=== PATIENT | male | born 1930 | race Caucasian/White ===

== ENCOUNTER 2017-07-26 16:26 | Inpatient (IN) ==
[2017-07-26] MEDS ORDERED: 0.9 % Sodium Chloride 1,000 ML IVC ONE ×2 (16:35→19:22)
[2017-07-26 16:55] LABS: Basophils % 0.2 %; Eosinophils % 0.2 %; Hemoglobin 12.9 g/dL (12.9-16.9); Immature Granulocytes % 0.2 % (0-4); Mean Corpuscular HGB Conc 31.5 g/dL (31.6-35.5); Mean Corpuscular Hemoglobin 28.5 pg (28.0-33.3); Mean Corpuscular Volume 90.5 fL (83.0-100.0); Mean Platelet Volume 11.3 fL (9.4-12.4); Monocytes # 0.6 K/mcL (0.0-1.3); Monocytes % 7.2 %; Neutrophils # 6.9 K/mcL (1.6-8.9); Platelet Count 184 K/mcL (140-400); Red Blood Count 4.53 M/mcL (4.19-5.50); Red Cell Distribution Width 15.5 % (11.5-14.5); Segmented Neutrophils % 80.2 %
[2017-07-26 16:58] LABS: INR 1.3; Prothrombin Time 14.2 Seconds (9.4-12.1)
--- NOTE | 2017-07-26 17:03 | Emergency Department Note ---
Disposition Clinical Impression: HHNC (hyperglycemic hyperosmolar nonketotic coma) Community acquired pneumonia Qualifiers: Laterality: unspecified laterality Qualified Code(s): J18.9 - Pneumonia, unspecified organism Disposition: Admitted As Inpatient Condition: Fair Time of Disposition: 21:15 Altered Mental Status HPI - General Chief Complaint: ED Altered Mental Status Stated Complaint: altered mental status Time Seen by Provider: 07/26/17 16:35 Source: EMS Limitations: no limitations Nursing Notes Reviewed: Yes Vital Signs Reviewed: Yes - History of Present Illness HPI Narrative: Patient is a 86-year-old male presents secondary to declining mental status over the past 6 weeks per his daughter at bedside. Patient states no signs of unilateral focal weaknesses no facial droop. Patient has a NIH score of 0 on arrival. Patient has a history of CHF and has not been taking his meds. Daughter states that he has extra help in assisted living to make sure he takes his medications but even with them and her on the phone told her father to take his medications that he would not take him. She noticed dramatic change in his mental status today which she was not responding to any commands and called EMS. - Related Data Home Medications Medication Instructions Recorded Confirmed Aspirin [Adult Low Dose Aspirin EC] 81 mg PO QAM 09/25/15 09/25/15 Atorvastatin Calcium [Lipitor] 20 mg PO QPM 09/25/15 09/25/15 Carbidopa/Levodopa 25/250 [Sinemet 1 each PO TID 09/25/15 09/25/15 25/250] Carbidopa/Levodopa [Carbidopa-Levo 3 each PO HS 09/25/15 09/25/15 ER 25-100 Tab] Cholecalciferol (Vitamin D3) 1,000 unit PO QAM 09/25/15 09/25/15 [Vitamin D3] Entacapone [Comtan] 200 mg PO QID 09/25/15 09/25/15 Ferrous Sulfate 325 mg PO QAM 09/25/15 09/25/15 Folic Acid 0.8 mg PO QAM 09/25/15 09/25/15 Gabapentin [Neurontin] 600 mg PO BID 09/25/15 09/25/15 Gabapentin [Neurontin] 900 mg PO HS 09/25/15 09/25/15 Multivitamin/Iron/Folic Acid 1 each PO BID 02/01/16 02/01/16 [Centrum Complete Multivit Tab] Pantoprazole Sodium [Protonix] 40 mg PO QAM 09/25/15 09/25/15 levETIRAcetam [Keppra] 500 mg PO DAILY 09/25/15 09/25/15 levETIRAcetam [Keppra] 750 mg PO QAM 09/25/15 09/25/15 Previous Rx's Medication Instructions Recorded Sulfamethoxazole/Trimeth DS 1 each PO BID #14 tablet 07/22/17 [Bactrim DS] Allergies Allergy/AdvReac Type Severity Reaction Status Date / Time codeine Allergy Hives Verified 09/25/15 13:40 Penicillins [PCN] Allergy Hives Verified 09/25/15 16:37 All systems ED: reviewed and negative except as stated. Review of Systems: As Per HPI Constitutional: Denies: fever Eyes: Denies: vision change ENT ED: Reports: congestion Cardiovascular: Denies: chest pain, palpitations Respiratory: Reports: cough, dyspnea Gastrointestinal: Denies: abdominal pain, nausea, vomiting, diarrhea Genitourinary: Denies: urgency, dysuria, frequency Musculoskeletal: Denies: back pain, neck pain Integumentary: Reports: rash Neurological: Reports: weakness. Denies: headache Psychiatric: Denies: anxiety Endocrine: Denies: fatigue Allergic/Immunologic: Denies: facial swelling Past Medical History - Past Medical History Attestation: Yes The following information was validated with the patient. 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 Psychiatric history: Reports: depression - Social History Smoking Status: Never smoker Smokeless Tobacco Status: No Alcohol use: Reports: none Drug use: Reports: none Physical Exam Vital Signs Temperature 98.1 F 07/26/17 16:32 Pulse Rate 84 07/26/17 16:32 Respiratory Rate 18 07/26/17 16:32 Blood Pressure 133/70 07/26/17 16:32 O2 Sat by Pulse Oximetry 95 07/26/17 16:32 Temperature 98.1 F 07/26/17 16:32 Pulse Rate 93 07/26/17 17:01 Respiratory Rate 16 07/26/17 17:01 Blood Pressure 133/70 07/26/17 17:01 O2 Sat by Pulse Oximetry 93 07/26/17 17:01 Oxygen Delivery Oxygen Delivery Nasal Cannula 86-year-old male who is currently alert and oriented 3 and in no acute distress. Patient has a NIH score of 0. Patient responds and follows directions well. She is nontoxic appearing patient has no abnormal vital signs - General Limitations: no limitations General appearance: alert, in no apparent distress - Head Head exam: atraumatic, normocephalic, normal inspection - Eye Eye exam: Present: normal appearance, PERRL, EOMI - ENT ENT exam: normal exam, normal oropharynx, mucous membranes dry - Neck Neck exam: Present: normal inspection, full ROM, trachea midline. Absent: tenderness - Chest Chest inspection: Present: normal inspection, symmetric chest wall rise - Respiratory Respiratory exam: Present: normal lung sounds bilaterally, other (Course Rales bilaterally patient sounds congested and has wet sounding gurgly breath sounds) . Absent: respiratory distress, wheezes - Cardiovascular Cardiovascular exam: Present: regular rate, normal rhythm, normal heart sounds - Abdominal Exam Abdominal exam: Present: soft, Non-Tender, other (Rounded abdomen). Absent: tenderness, distention, guarding, rebound, rigidity Course Vital Signs Temperature 98.1 F 07/26/17 16:32 Pulse Rate 84 07/26/17 16:32 Respiratory Rate 18 07/26/17 16:32 Blood Pressure 133/70 07/26/17 16:32 O2 Sat by Pulse Oximetry 95 07/26/17 16:32 Temperature 98 F 07/26/17 20:02 Pulse Rate 85 07/26/17 20:45 Respiratory Rate 18 07/26/17 20:45 Blood Pressure 123/74 07/26/17 20:45 O2 Sat by Pulse Oximetry 93 07/26/17 20:45 Oxygen Delivery Oxygen Delivery Nasal Cannula Altered Mental Status - [facility] Narrative Medical decision making narrative: Ultimately status worsening over the past 6 weeks with acute severe worsening today where patient was not responding to commands and had severe generalized weakness discomfort concerning for possible acute infection resulting in metabolic encephalopathy versus CVA. Patient had a negative NIH and is alert and oriented 3 with a GCS 15 and no focal neurologic deficits currently doubt CVA. Patient's blood glucose came back 862. with a neg beta hydroxybutyric acid, he has been started on insulin given 9 units to treat possibly HHS. Awaiting ABG. Patient has anion gap 17. Repeat glucose 530 POC. After first dose insulin patient placed on insulin drip. Chest x-ray shows atelectasis bibasilar pulmonary effusions could be hiding possible pneumonia. Patient was started on 1 dose levofloxacin to cover for possible pneumonia. Dr. Gomez the hospitalist accepted patient for admission - Lab Data Lab results reviewed: Yes I reviewed the patient's lab results. Lab results narrative: Short CBC 07/26/17 Range/Units 16:44 WBC 8.6 (4.3-11.1) K/mcL Hgb 12.9 (12.9-16.9) g/dL Hct 41.0 (37.5-50.1) % Plt Count 184 (140-400) K/mcL Neutrophils # 6.9 (1.6-8.9) K/mcL BMP 07/26/17 Range/Units 16:44 Sodium 140 (136-145) mEq/L Potassium 5.6 H (3.5-4.5) mEq/L Chloride 106 (98-109) mEq/L Carbon Dioxide 17 L (19-29) mEq/L BUN 37 H (8-26) mg/dL Creatinine 2.47 H (0.72-1.25) mg/dL Glucose 862 H* (70-99) mg/dL Calcium 9.2 (8.6-10.8) mg/dL Cardiac Enzymes 07/26/17 Range/Units 16:44 Troponin I 0.02 (0-0.03) ng/mL Liver Function 07/26/17 Range/Units 16:44 Total Bilirubin 0.6 (0.2-1.2) mg/dL Direct Bilirubin 0.3 (0.0-0.5) mg/dL AST 21 (5-34) Units/L ALT 14 (0-55) Units/L Alkaline Phosphatase 127 H (38-126) Units/L Albumin 2.9 L (3.5-5.0) g/dL Urine 07/26/17 Range/Units 17:25 Urine Color Yellow (Yellow) Urine Clarity Cloudy A (Clear) Urine pH 6.0 (5.0-8.0) pH Units Ur Specific Robins > 1.030 H (1.010-1.025) Urine Protein Negative (Neg-Trace) mg/dL Urine Glucose (UA) >=1000 H (Normal) mg/dL Result diagrams: 07/26/17 16:44 07/26/17 16:44 Lab Results 07/26/17 07/26/17 07/26/17 Range/Units 16:38 16:39 16:44 WBC (4.3-11.1) K/mcL RBC (4.19-5.50) M/mcL Hgb (12.9-16.9) g/dL Hct (37.5-50.1) % MCV (83.0-100.0) fL MCH (28.0-33.3) pg MCHC (31.6-35.5) g/dL RDW (11.5-14.5) % Plt Count (140-400) K/mcL MPV (9.4-12.4) fL Immature Gran % (0-4) % Seg Neutrophils % % Lymphocytes % % Monocytes % % Eosinophils % % Basophils % % Neutrophils # (1.6-8.9) K/mcL Lymphocytes # (0.6-4.6) K/mcL Monocytes # (0.0-1.3) K/mcL Eosinophils # (0.0-0.6) K/mcL Basophils # (0.0-0.2) K/mcL PT (9.4-12.1) Seconds INR APTT (26.0-36.0) Seconds Carboxyhemoglobin (0-5) % Sodium (136-145) mEq/L Potassium (3.5-4.5) mEq/L Chloride (98-109) mEq/L Carbon Dioxide (19-29) mEq/L BUN (8-26) mg/dL Creatinine (0.72-1.25) mg/dL Est GFR ( Amer) (> 60) Est GFR (Non-Af Amer) (> 60) BUN/Creatinine Ratio (6-26) Glucose (70-99) mg/dL POC Glucose > 600 H* > 600 H* (58-89) Calculated Osmolality (280-300) Calcium (8.6-10.8) mg/dL Total Bilirubin (0.2-1.2) mg/dL Direct Bilirubin (0.0-0.5) mg/dL Indirect Bilirubin (0.0-1.2) mg/dL AST (5-34) Units/L ALT (0-55) Units/L Alkaline Phosphatase (38-126) Units/L Ammonia 22 (18-72) mcmol/L Troponin I (0-0.03) ng/mL B-Natriuretic Peptide (0-100) pg/mL Serum Total Protein (6.0-8.3) g/dL Albumin (3.5-5.0) g/dL Globulin (2.4-3.5) g/dL Albumin/Globulin Ratio (1.1-2.2) Beta-Hydroxybutyric Acd (0.02-0.27) mmol/L TSH (0.350-4.840) mcIU/mL Urine Color (Yellow) Urine Clarity (Clear) Urine pH (5.0-8.0) pH Units Ur Specific Robins (1.010-1.025) Urine Protein (Neg-Trace) mg/dL Urine Glucose (UA) (Normal) mg/dL Urine Ketones (Negative) mg/dL Urine Blood (Negative) Urine Nitrite (Negative) Urine Bilirubin (Negative) Urine Urobilinogen (Normal) mg/dL Ur Leukocyte Esterase (Negative) Urine Microscopic RBC (0-3) per hpf Urine Microscopic WBC (0-3) per hpf Ur Squamous Epith Cells (None-Few) per lpf Urine Bacteria (None-Few) per hpf Hyaline Casts (None-Few) per lpf Urine Yeast (None Seen) per hpf Ur Culture Indicated? (NO) Urine Opiates Screen (Dkdwcr=528) ng/mL Ur Barbiturates Screen (Yrflto=834) ng/mL Ur Phencyclidine Scrn (Cutoff=25) ng/mL Ur Amphetamines Screen (Rvhbeb=4976) ng/mL U Benzodiazepines Scrn (Ijyost=668) ng/mL Urine Cocaine Screen (Cutoff= 300) ng/mL U Marijuana (THC) Screen (Cutoff = 50) ng/mL Ethyl Alcohol (0-10) mg/dL 07/26/17 07/26/17 07/26/17 Range/Units 16:44 16:44 16:44 WBC 8.6 (4.3-11.1) K/mcL RBC 4.53 (4.19-5.50) M/mcL Hgb 12.9 (12.9-16.9) g/dL Hct 41.0 (37.5-50.1) % MCV 90.5 (83.0-100.0) fL MCH 28.5 (28.0-33.3) pg MCHC 31.5 L (31.6-35.5) g/dL RDW 15.5 H (11.5-14.5) % Plt Count 184 (140-400) K/mcL MPV 11.3 (9.4-12.4) fL Immature Gran % 0.2 (0-4) % Seg Neutrophils % 80.2 % Lymphocytes % 12.0 % Monocytes % 7.2 % Eosinophils % 0.2 % Basophils % 0.2 % Neutrophils # 6.9 (1.6-8.9) K/mcL Lymphocytes # 1.0 (0.6-4.6) K/mcL Monocytes # 0.6 (0.0-1.3) K/mcL Eosinophils # 0.0 (0.0-0.6) K/mcL Basophils # 0.0 (0.0-0.2) K/mcL PT 14.2 H (9.4-12.1) Seconds INR 1.3 APTT 33.0 (26.0-36.0) Seconds Carboxyhemoglobin 7.4 H (0-5) % Sodium (136-145) mEq/L Potassium (3.5-4.5) mEq/L Chloride (98-109) mEq/L Carbon Dioxide (19-29) mEq/L BUN (8-26) mg/dL Creatinine (0.72-1.25) mg/dL Est GFR ( Amer) (> 60) Est GFR (Non-Af Amer) (> 60) BUN/Creatinine Ratio (6-26) Glucose (70-99) mg/dL POC Glucose (58-89) Calculated Osmolality (280-300) Calcium (8.6-10.8) mg/dL Total Bilirubin (0.2-1.2) mg/dL Direct Bilirubin (0.0-0.5) mg/dL Indirect Bilirubin (0.0-1.2) mg/dL AST (5-34) Units/L ALT (0-55) Units/L Alkaline Phosphatase (38-126) Units/L Ammonia (18-72) mcmol/L Troponin I (0-0.03) ng/mL B-Natriuretic Peptide (0-100) pg/mL Serum Total Protein (6.0-8.3) g/dL Albumin (3.5-5.0) g/dL Globulin (2.4-3.5) g/dL Albumin/Globulin Ratio (1.1-2.2) Beta-Hydroxybutyric Acd (0.02-0.27) mmol/L TSH (0.350-4.840) mcIU/mL Urine Color (Yellow) Urine Clarity (Clear) Urine pH (5.0-8.0) pH Units Ur Specific Robins (1.010-1.025) Urine Protein (Neg-Trace) mg/dL Urine Glucose (UA) (Normal) mg/dL Urine Ketones (Negative) mg/dL Urine Blood (Negative) Urine Nitrite (Negative) Urine Bilirubin (Negative) Urine Urobilinogen (Normal) mg/dL Ur Leukocyte Esterase (Negative) Urine Microscopic RBC (0-3) per hpf Urine Microscopic WBC (0-3) per hpf Ur Squamous Epith Cells (None-Few) per lpf Urine Bacteria (None-Few) per hpf Hyaline Casts (None-Few) per lpf Urine Yeast (None Seen) per hpf Ur Culture Indicated? (NO) Urine Opiates Screen (Bcqlxo=223) ng/mL Ur Barbiturates Screen (Qgzaab=898) ng/mL Ur Phencyclidine Scrn (Cutoff=25) ng/mL Ur Amphetamines Screen (Jekaem=6525) ng/mL U Benzodiazepines Scrn (Nijzam=068) ng/mL Urine Cocaine Screen (Cutoff= 300) ng/mL U Marijuana (THC) Screen (Cutoff = 50) ng/mL Ethyl Alcohol (0-10) mg/dL 07/26/17 07/26/17 07/26/17 Range/Units 16:44 16:44 16:44 WBC (4.3-11.1) K/mcL RBC (4.19-5.50) M/mcL Hgb (12.9-16.9) g/dL Hct (37.5-50.1) % MCV (83.0-100.0) fL MCH (28.0-33.3) pg MCHC (31.6-35.5) g/dL RDW (11.5-14.5) % Plt Count (140-400) K/mcL MPV (9.4-12.4) fL Immature Gran % (0-4) % Seg Neutrophils % % Lymphocytes % % Monocytes % % Eosinophils % % Basophils % % Neutrophils # (1.6-8.9) K/mcL Lymphocytes # (0.6-4.6) K/mcL Monocytes # (0.0-1.3) K/mcL Eosinophils # (0.0-0.6) K/mcL Basophils # (0.0-0.2) K/mcL PT (9.4-12.1) Seconds INR APTT (26.0-36.0) Seconds Carboxyhemoglobin (0-5) % Sodium 140 (136-145) mEq/L Potassium 5.6 H (3.5-4.5) mEq/L Chloride 106 (98-109) mEq/L Carbon Dioxide 17 L (19-29) mEq/L BUN 37 H (8-26) mg/dL Creatinine 2.47 H (0.72-1.25) mg/dL Est GFR ( Amer) 30 L (> 60) Est GFR (Non-Af Amer) 25 L (> 60) BUN/Creatinine Ratio 15 (6-26) Glucose 862 H* (70-99) mg/dL POC Glucose (58-89) Calculated Osmolality 341 H (280-300) Calcium 9.2 (8.6-10.8) mg/dL Total Bilirubin 0.6 (0.2-1.2) mg/dL Direct Bilirubin 0.3 (0.0-0.5) mg/dL Indirect Bilirubin 0.3 (0.0-1.2) mg/dL AST 21 (5-34) Units/L ALT 14 (0-55) Units/L Alkaline Phosphatase 127 H (38-126) Units/L Ammonia (18-72) mcmol/L Troponin I 0.02 (0-0.03) ng/mL B-Natriuretic Peptide 170 H (0-100) pg/mL Serum Total Protein 7.0 (6.0-8.3) g/dL Albumin 2.9 L (3.5-5.0) g/dL Globulin 4.1 H (2.4-3.5) g/dL Albumin/Globulin Ratio 0.7 L (1.1-2.2) Beta-Hydroxybutyric Acd 0.07 (0.02-0.27) mmol/L TSH 1.091 (0.350-4.840) mcIU/mL Urine Color (Yellow) Urine Clarity (Clear) Urine pH (5.0-8.0) pH Units Ur Specific Robins (1.010-1.025) Urine Protein (Neg-Trace) mg/dL Urine Glucose (UA) (Normal) mg/dL Urine Ketones (Negative) mg/dL Urine Blood (Negative) Urine Nitrite (Negative) Urine Bilirubin (Negative) Urine Urobilinogen (Normal) mg/dL Ur Leukocyte Esterase (Negative) Urine Microscopic RBC (0-3) per hpf Urine Microscopic WBC (0-3) per hpf Ur Squamous Epith Cells (None-Few) per lpf Urine Bacteria (None-Few) per hpf Hyaline Casts (None-Few) per lpf Urine Yeast (None Seen) per hpf Ur Culture Indicated? (NO) Urine Opiates Screen (Tgjvbz=659) ng/mL Ur Barbiturates Screen (Pfgzuv=456) ng/mL Ur Phencyclidine Scrn (Cutoff=25) ng/mL Ur Amphetamines Screen (Sdoxst=6288) ng/mL U Benzodiazepines Scrn (Yinayn=577) ng/mL Urine Cocaine Screen (Cutoff= 300) ng/mL U Marijuana (THC) Screen (Cutoff = 50) ng/mL Ethyl Alcohol < 10 (0-10) mg/dL 07/26/17 07/26/17 Range/Units 17:25 17:25 WBC (4.3-11.1) K/mcL RBC (4.19-5.50) M/mcL Hgb (12.9-16.9) g/dL Hct (37.5-50.1) % MCV (83.0-100.0) fL MCH (28.0-33.3) pg MCHC (31.6-35.5) g/dL RDW (11.5-14.5) % Plt Count (140-400) K/mcL MPV (9.4-12.4) fL Immature Gran % (0-4) % Seg Neutrophils % % Lymphocytes % % Monocytes % % Eosinophils % % Basophils % % Neutrophils # (1.6-8.9) K/mcL Lymphocytes # (0.6-4.6) K/mcL Monocytes # (0.0-1.3) K/mcL Eosinophils # (0.0-0.6) K/mcL Basophils # (0.0-0.2) K/mcL PT (9.4-12.1) Seconds INR APTT (26.0-36.0) Seconds Carboxyhemoglobin (0-5) % Sodium (136-145) mEq/L Potassium (3.5-4.5) mEq/L Chloride (98-109) mEq/L Carbon Dioxide (19-29) mEq/L BUN (8-26) mg/dL Creatinine (0.72-1.25) mg/dL Est GFR ( Amer) (> 60) Est GFR (Non-Af Amer) (> 60) BUN/Creatinine Ratio (6-26) Glucose (70-99) mg/dL POC Glucose (58-89) Calculated Osmolality (280-300) Calcium (8.6-10.8) mg/dL Total Bilirubin (0.2-1.2) mg/dL Direct Bilirubin (0.0-0.5) mg/dL Indirect Bilirubin (0.0-1.2) mg/dL AST (5-34) Units/L ALT (0-55) Units/L Alkaline Phosphatase (38-126) Units/L Ammonia (18-72) mcmol/L Troponin I (0-0.03) ng/mL B-Natriuretic Peptide (0-100) pg/mL Serum Total Protein (6.0-8.3) g/dL Albumin (3.5-5.0) g/dL Globulin (2.4-3.5) g/dL Albumin/Globulin Ratio (1.1-2.2) Beta-Hydroxybutyric Acd (0.02-0.27) mmol/L TSH (0.350-4.840) mcIU/mL Urine Color Yellow (Yellow) Urine Clarity Cloudy A (Clear) Urine pH 6.0 (5.0-8.0) pH Units Ur Specific Robins > 1.030 H (1.010-1.025) Urine Protein Negative (Neg-Trace) mg/dL Urine Glucose (UA) >=1000 H (Normal) mg/dL Urine Ketones Negative (Negative) mg/dL Urine Blood Negative (Negative) Urine Nitrite Negative (Negative) Urine Bilirubin Negative (Negative) Urine Urobilinogen Normal (Normal) mg/dL Ur Leukocyte Esterase Moderate H (Negative) Urine Microscopic RBC 0-3 (0-3) per hpf Urine Microscopic WBC TNTC H (0-3) per hpf Ur Squamous Epith Cells Many H (None-Few) per lpf Urine Bacteria Moderate H (None-Few) per hpf Hyaline Casts None Seen (None-Few) per lpf Urine Yeast Many H (None Seen) per hpf Ur Culture Indicated? YES A (NO) Urine Opiates Screen Negative (Tkvpix=652) ng/mL Ur Barbiturates Screen Negative (Wjwmyo=811) ng/mL Ur Phencyclidine Scrn Negative (Cutoff=25) ng/mL Ur Amphetamines Screen Negative (Acokoy=9863) ng/mL U Benzodiazepines Scrn Negative (Fzcrcg=032) ng/mL Urine Cocaine Screen Negative (Cutoff= 300) ng/mL U Marijuana (THC) Screen Negative (Cutoff = 50) ng/mL Ethyl Alcohol (0-10) mg/dL - Radiology Data Radiology results reviewed: Yes I reviewed the patient's radiology results. Chest X-Ray 07/26/17 16:36 IMPRESSION: Bibasilar opacities favored to reflect atelectasis and bronchovascular crowding given low lung volumes, however superimposed aspiration or pneumonia not excluded. Suspect small bilateral effusions. Cardiac silhouette is mostly obscured but appears enlarged similar to prior exams. No evidence of cardiac decompensation. D/ / Jose Alberto Jasso / Jose Alberto Jasso Interpreting Provider: Jose Alberto Jasso Head CT 07/26/17 16:36 IMPRESSION: No acute intracranial abnormality. D/ / Michael Etienne MD / Michael Etienne MD Interpreting Provider: Michael Etienne MD Critical Care Time Critical Care Time: Yes Total Critical Care Time: 35 Attestation: Critical care time managing patient's acute mental status change and hyperglycemia 35 minutes. Attestation Statement - Attestation Attestation: Patient was seen with resident physician. I reviewed the history, physical, assessment and plan, and agree with the findings. I also personally evaluated this patient and had [id number] time with this patient. A 6-year-old male presents to the emergency department with mental status changes. Patient himself is a poor historian. Most of my history was obtained from the nurse who spoke with a family member when the patient was registered. Said that he has not been acting appropriately. However when the nurse did initial intake NIH was 0. On exam vital signs were stable. ENT is unremarkable. Heart regular rhythm and rate. Lungs diffuse wheezing throughout. Abdomen is soft and nontender extremities 2+ edema bilaterally. Neurologically patient is alert and does not answer questions particularly well does move all extremities. His NIH was 0. ED course. Altered mental status change workup was done. Patient was found have acute kidney injury with resulting CHF and also severely elevated glucose at greater than 800. Treatment protocols were started and the patient will be admitted to the hospital service for further evaluation treatment. Critical care time 35 minutes. Glucose was improved prior to disposition. Head CT scan did not show acute abnormality. Patient did have some unusual runs wall on the monitor but his EKG showed no acute ischemic changes. Agree with the resident physician assessment and plan.
[2017-07-26 17:11] LABS: Alanine Aminotransferase 14 Units/L (0-55); Albumin 2.9 g/dL (3.5-5.0); Albumin/Globulin Ratio 0.7 (1.1-2.2); Alkaline Phosphatase 127 Units/L (38-126); Aspartate Amino Transferase 21 Units/L (5-34); BUN/Creatinine Ratio 15 (6-26); Bilirubin,Direct 0.3 mg/dL (0.0-0.5); Bilirubin,Indirect 0.3 mg/dL (0.0-1.2); Bilirubin,Total 0.6 mg/dL (0.2-1.2); Blood Urea Nitrogen 37 mg/dL (8-26); Calcium 9.2 mg/dL (8.6-10.8); Carbon Dioxide 17 mEq/L (19-29); Chloride 106 mEq/L (98-109); Globulin 4.1 g/dL (2.4-3.5); Osmolality,Calculated 341 (280-300); Potassium 5.6 mEq/L (3.5-4.5); Sodium 140 mEq/L (136-145); eGFR For African Americans 30 (> 60); eGFR For Non-African Americans 25 (> 60)
[2017-07-26 17:14] LABS: Glucose 862 mg/dL (70-99)
[2017-07-26 17:34] LABS: Ethanol < 10 mg/dL (0-10)
[2017-07-26 17:34] LABS: Bilirubin,Urine Negative (Negative); Blood,Urine Negative (Negative); Clarity,Urine Cloudy (Clear); Color,Urine Yellow (Yellow); Glucose,Urine (UA) >=1000 mg/dL (Normal); Ketones,Urine Negative (Negative); Leukocyte Esterase,Urine Moderate (Negative); Nitrite,Urine Negative (Negative); Protein,Urine Negative (Neg-Trace); Specific Gravity,Urine > 1.030 (1.010-1.025); Urobilinogen,Urine Normal (Normal)
[2017-07-26 17:37] LABS: Bacteria,Urine Moderate per hpf (None-Few); Hyaline Casts,Urine None Seen per lpf (None-Few); Squamous Epithelial Cell,Urine Many per lpf (None-Few); WBC,Urine TNTC per hpf (0-3)
[2017-07-26 17:39] LABS: Amphetamine Screen,Urine Negative ng/mL (Cutoff=1000); Barbiturate Screen,Urine Negative ng/mL (Cutoff=200); Benzodiazepines Screen,Urine Negative ng/mL (Cutoff=200); Cannabinoid Screen,Urine Negative ng/mL (Cutoff = 50); Cocaine Screen,Urine Negative ng/mL (Cutoff= 300); Opiate Screen,Urine Negative ng/mL (Cutoff=300); Phencyclidine Screen,Urine Negative ng/mL (Cutoff=25)
[2017-07-26 17:41] LABS: Beta-Hydroxybutyric Acid 0.07 mmol/L (0.02-0.27)
[2017-07-26] MEDS ORDERED: Insulin Regular, Human 100 UNIT/ML IV ONE ×2 (17:41→18:00)
[2017-07-26] MEDS ORDERED: Furosemide 40 MG/4 ML VIAL IVP ONE (17:41)
[2017-07-26 17:48] LABS: RBC,Urine 0-3 per hpf (0-3); Yeast,Urine Many per hpf (None Seen)
[2017-07-26 17:54] LABS: Thyroid Stimulating Hormone 1.091 mcIU/mL (0.350-4.840)
[2017-07-26] MEDS ORDERED: Levofloxacin 750 MG/150 ML 750 MG/150 ML BAG IVPB ONE (19:22)
[2017-07-26] MEDS ORDERED: *HR* Dextrose 50 % in Water (Syg) 50 ML SYRINGE IVP PRN ×2 (19:22→21:19)
[2017-07-26] MEDS ORDERED: Insulin Human Regular 100 UNIT in 0.9 % Sodium Chloride 100 ML IVC SCH ×2 (19:30→21:30)
[2017-07-26] MEDS ORDERED: Carbidopa/Levodopa 25/250 TABLET PO SCH (21:15)
[2017-07-26] MEDS ORDERED: D5% in 0.45% NACL 1,000 ML IVC PRN (21:19)
[2017-07-26] MEDS ORDERED: D5% in 0.45% NACL w KCl 20 MEQ/1,000 ML MLS IVC PRN (21:19)
[2017-07-26] MEDS ORDERED: 0.45 % Sodium Chloride w/KCl 20 MEQ/1,000 ML MLS IVC PRN ×2 (21:30)
[2017-07-26] MEDS: Aspirin Enteric Coated 81 MG Tablet PO SCH (21:32)
[2017-07-26] MEDS: Carbidopa/Levodopa 25/100 TABLET PO SCH ×2 (21:32→22:14)
[2017-07-26] MEDS: 0.9 % Sodium Chloride 1,000 ML IVC SCH (21:32)
[2017-07-26] MEDS: Cholecalciferol (D-3) 1,000 UNIT TABLET PO SCH (21:32)
[2017-07-26] MEDS: Gabapentin 300 MG CAPSULE PO SCH ×2 (21:34→22:13)
--- NOTE | 2017-07-26 21:51 | Internal Med History&Physical ---
Addendum entered and electronically signed by Shashi Wallis DO 07/26/17 22 :38: Lovenox changed to 30 mg SQ daily due to creatinine clearance level. Original Note: <Shashi Wallis - Last Filed: 07/26/17 21:38> Date of Encounter: 07/26/17 Time of Encounter: 22:00 Assessment and Plan (1) HHNC (hyperglycemic hyperosmolar nonketotic coma) Current visit: Yes Status: Acute Blood glucose level was 862 upon arrival. Onset of his symptoms has been for the past 6 days. UA was negative for ketones. Given the gluocse level, length of time of onset of symptoms, and UA being negative for ketones, this seems more like HHNC and not DKA. Patient was given 2 L of NS in ER and started on insulin drip. - Continue HHS protocol. (2) Aspiration pneumonia Current visit: Yes Status: Acute Patient afebrile on presentation and WBC is within normal limits. Daughter denies patient c/o fever, how patient has been altered. Chest x-ray: Bibasilar opacities favored to reflect atelectasis and bronchovascular crowding given low lung volumes, however superimposed aspiration or pneumonia not excluded. Suspect small bilateral effusions. Given patient's altered mental status and findings of CXR, likelihood of aspiration PNA is high. - Since the patient has an allergy to penicillin of unknown severity, I will start him on levaquin. Given his calculated creatinine clearance is 29, the levaquin will be q48hr. Recommend adjusting once creatinine level improves. - Blood culture ordered, however after administration of antibiotics. - Aspiration precautions. - Consult to speech therapy. - NPO diet. Please switch to dysphagia diet if possible once patient has been evaluated by speech therapy. Qualifiers: Aspiration pneumonia type: unspecified Laterality: bilateral Lung location: unspecified part of lung Qualified Code(s): J69.0 - Pneumonitis due to inhalation of food and vomit (3) MARZENA (acute kidney injury) Current visit: Yes Status: Acute Creatine level on presentation was 2.47. - IV fluids. (4) Diabetes mellitus, new onset Current visit: Yes Status: Acute - A1c lab (5) Mental status alteration Current visit: No Status: Acute Patient was AxO3 when seen, however he was still confused and unable to recount the events of today and was unable to answer most questions appropriately. He has been having a steady decline in the past 10 months, however acutely, his severe decline might likely be secondary to possible UTI. Qualifiers: Coma depth: Eber coma 13-15 Qualified Code(s): R40.2412 - Eber coma scale score 13-15, at arrival to emergency department (6) Urinary tract infection Current visit: No Status: Acute UA shows positive LE with moderate bacteria and yeast. Patient presents with AMS. - Urine culture pending. - Will treat with levaquin for now. Qualifiers: Urinary tract infection type: acute cystitis Hematuria presence: without hematuria Qualified Code(s): N30.00 - Acute cystitis without hematuria (7) History of hypertension Current visit: Yes Status: Acute BP is controlled and normotensive at 123/74. (8) DVT prophylaxis Current visit: No Status: Acute - 40 mg Loveneox SQ daily. Internal Medicine - H&P: HPI Chief complaint: AMS Admitted From: Emergency Dept History of present illness: Mr. Eubanks is a 86 year old male with a PMH of Atrial fibrillation, CHF, HLD, HTN, pseudo-seizures, and Parkinson's Disease with a PMH of pacemaker/AICD that presents for AMS. Patient's history was obtained from daughter who was present at bedside. She says that the patient has been living in an assisted care facility and for the past 10 months, he has been experiencing a progressive decline in mental status, however for the past 6 days, she has noticed a severe decline. He has been having issues of incontinence and non-compliance with his medications. He was become extremely weak and lethargic. Daughter states that patient has changed his diet drastically in the past 10 months, stating he has been "sugar-binging" and has gained 40 pounds as a result. She denies any fever or chills. Patient has chronic cough, wheezing, and SOB due to his CHF. He was recently put on lasix 3 months ago, but he still continues to experience symptoms. She does note that his SOB has increased in the past 6 weeks. She denies any complaints of dysrua or hematuria from the patient. Denies nausea, vomiting, or diarrhea. She is unsure whether patient has issues of constipation. He was brought into the ER earlier today with a blood glucose level of 862. Past Med Surg Social Fam HX - Past Medical History Medical history: atrial fibrillation, CHF, hyperlipidemia, hypertension, seizures, other Psychiatric history: depression - Past Surgical History Surgical History: pacemaker/AICD - Social History Smoking Status: Never smoker Smokeless Tobacco Status: No Alcohol use: none Drug use: none Internal Medicine - H&P: Meds Aspirin [Adult Low Dose Aspirin EC] 81 mg PO QAM 09/25/15 [History] Atorvastatin Calcium [Lipitor] 20 mg PO QPM 09/25/15 [History] Carbidopa/Levodopa 25/250 [Sinemet 25/250] 1 each PO TID 09/25/15 [History] Carbidopa/Levodopa [Carbidopa-Levo ER 25-100 Tab] 3 each PO HS 09/25/15 [History ] Cholecalciferol (Vitamin D3) [Vitamin D3] 1,000 unit PO QAM 09/25/15 [History] Entacapone [Comtan] 200 mg PO QID 09/25/15 [History] Ferrous Sulfate 325 mg PO QAM 09/25/15 [History] Folic Acid 0.8 mg PO QAM 09/25/15 [History] Gabapentin [Neurontin] 600 mg PO BID 09/25/15 [History] Gabapentin [Neurontin] 900 mg PO HS 09/25/15 [History] Multivitamin/Iron/Folic Acid [Centrum Complete Multivit Tab] 1 each PO BID 09/25 [History] Pantoprazole Sodium [Protonix] 40 mg PO QAM 09/25/15 [History] levETIRAcetam [Keppra] 500 mg PO DAILY 09/25/15 [History] levETIRAcetam [Keppra] 750 mg PO QAM 09/25/15 [History] Sulfamethoxazole/Trimeth DS [Bactrim DS] 1 each PO BID #14 tablet 07/22/17 [Rx] 3 Allergy/AdvReac Type Severity Reaction Status Date / Time codeine Allergy Hives Verified 09/25/15 13:40 Penicillins [PCN] Allergy Hives Verified 09/25/15 16:37 ROS unobtainable: due to mental status, other (History obtained from daughter at bedside. ) All Systems PM: A 10-system review of systems was performed and is negative for pertinent findings except as documented above in the HPI. - Constitutional Constitutional: weakness, weight gain (40 punds in last 10 months.), no fever(s) - Cardiovascular Cardiovascular ROS IM: dyspnea, edema - Respiratory Respiratory: cough, dyspnea, wheezing - Gastrointestinal Gastrointestinal: no abdominal pain, no diarrhea, no nausea, no vomiting - Genitourinary Genitourinary ROS male: no dysuria, no hematuria - Neurological Neurological ROS: behavioral changes, confusion, weakness - Psychiatric Psychiatric: behavioral changes, change in appetite, confusion - Constitutional Vitals: Temp Pulse Resp BP Pulse Ox 98 F 85 18 123/74 93 07/26/17 20:02 07/26/17 20:45 07/26/17 20:45 07/26/17 20:45 07/26/17 20:45 General appearance: Present: A&O X 3, no acute distress, obese. Absent: answers questions appropriately - Eye Eye exam: Present: EOMI, PERRL Pupils: Present: PERRL - ENT ENT exam: Present: mucous membranes dry - Respiratory Respiratory exam: Present: wheezes (Bilaterally in anterior and posterior coleman.). Absent: rhonchi, tachypnea - Cardiovascular Cardiovascular exam: Present: RRR, +S1, +S2 - Extremities Exam Extremities exam: Present: full ROM, normal capillary refill, pedal edema (+2 bilaterally pitting edema), radial pulses palpable and symmetrical. Absent: cyanotic, tenderness Additional comments: Pedal pulses intact and symmetrical bilaterally. - Back Exam Back exam: Absent: CVA tenderness (L), CVA tenderness (R) - Neurological Exam Neurological exam: Present: altered, CN II-XII intact, reflexes normal, no focal deficits, strengths equal and symetr throughout. Absent: motor sensory deficit, speech deficit Internal Med - H&P Results - Labs CBC & Chem 7: 07/26/17 16:44 07/26/17 16:44 <Zeynep Cobos - Last Filed: 07/26/17 22:49> Date of Encounter: 07/26/17 Internal Medicine - H&P: HPI History of present illness: Mr. Eubanks is a 86 year old male All Systems PM: A 10-system review of systems was performed and is negative for pertinent findings except as documented above in the HPI. - Constitutional Vitals: Temp Pulse Resp BP Pulse Ox 98 F 85 18 123/74 93 07/26/17 20:02 07/26/17 20:45 07/26/17 20:45 07/26/17 20:45 07/26/17 20:45 Internal Med - H&P Results - Labs CBC & Chem 7: 07/26/17 16:44 07/26/17 21:36 Labs: BMP 07/26/17 21:36 Sodium 144 Potassium 4.1 D Chloride 112 H Carbon Dioxide 21 BUN 36 H Creatinine 1.79 H Glucose 631 H* Calcium 8.2 L - Attending Attestation I examined this patient and my medical decision-making was reviewed with the Resident Physician. I agree with the documented findings, disposition and treatment plan as described except to the extent set forth below. Mr Eubanks is an 86 yo female who presents with AMS. Found new dx of DMII with HHS, MARZENA, UTI, possible PNA. He lives in independent living but has regular aides helping out in his care. Uses a walker a baseline and noct CPAP for SETH. He is DNRCCA per dtr. Has hx of pseudoseizures. He has been reportedly engaged in a sugar binge in the last 6 months. In the last 6 weeks to 6 days, developed progressive AMS, increased urinary frequency and urine incontinence. Symptoms got worse with time. EKG reviewed by self with rate 84, NSR, 1 degree AV block XR/XR chest 1V portable IMPRESSION: Bibasilar opacities favored to reflect atelectasis and bronchovascular crowding given low lung volumes, however superimposed aspiration or pneumonia not excluded. Suspect small bilateral effusions. Cardiac silhouette is mostly obscured but appears enlarged similar to prior exams. No evidence of cardiac decompensation. CT/CT head/brain wo con IMPRESSION: No acute intracranial abnormality. General - Confusion Psych - Appropriate affect/speech. No agitation Eyes - ALLIE. Eye lids intact. No scleral icterus Neuro - No gross peripheral or central neuro deficits on inspection Heart - Sinus. RRR. S1 and S2 present. No added HS/murmurs appreciated. No elevated JVD appreciated. Lung - Adequate air entry b/l, Bibasal crackles. No wheeze GI - Soft, non-tender. No hepatosplenomegaly/ascites. BS+ - No CVA/suprapubic tenderness or palpable bladder distension Skin - Intact. No rash/petechiae/ecchymosis. Warm extremities. Trace b/l edema A/P HHS MARZENA UTI Possible PNA, aspiration ? - Insulin gtt - IVF hydration - trend labs, lactate, lytes - IV antibiotics with anaerobic coverage - aspiration precautions, elevated HOB, speech eval
[2017-07-26 21:55] LABS: Calcium 8.2 mg/dL (8.6-10.8)
[2017-07-26 21:57] LABS: Potassium 4.1 mEq/L (3.5-4.5)
[2017-07-26 23:18] LABS: Calcium 9.1 mg/dL (8.6-10.8)
[2017-07-26 23:47] LABS: Hemoglobin A1C 11.3 %
--- NOTE | 2017-07-27 01:23 | Event Note ---
Date of Encounter: 07/27/17 Time of Encounter: 13:00 Patient was c/o calf tenderness. In evaluating the patient, he displayed bilateral calf tenderness upon deep palpation. No signs of swelling or bruising. Bilateral +2 pitting edema. Pedal pulses were intact bilaterally. Patient's lower extremities were warm to touch with good capillary refill bilaterally. Negative Darryl's sign bilaterally. Minor streaks of erythema noted in back of R knee joint. Since I do not see any swelling of the legs or bruising and that the patient is c/o bilateral pain instead of unilateral and that his Darryl's sign was negative bilaterally, there is minimal concern for DVT. He is currently on lovenox for DVT prophylaxis. The nurse also brought to my attention some erythema along the left side of his hip. 2-3 spots of erythema about 2-3 cm in size. No signs of active bleeding. No pain upon touch.
[2017-07-27 01:40] LABS: Calcium 8.2 mg/dL (8.6-10.8); Potassium 4.3 mEq/L (3.5-4.5)
--- NOTE | 2017-07-27 03:54 | Event Note ---
Date of Encounter: 07/27/17 Time of Encounter: 03:54 Patient went into atrial fibrillation RVR. He was started on 5 mg cardizem bolus and on 5 mg/HR cardizem.
[2017-07-27] MEDS: MetroNIDAZOLE 500 MG/100 ML 500 MG/100 ML BAG IVPB SCH ×3 (04:08→16:19)
[2017-07-27] MEDS: *HR* Enoxaparin 30 MG/0.3 ML SYRINGE SQ SCH (04:13)
[2017-07-27] MEDS: dilTIAZem HCl 100 MG in D5% in Water 50 ML IVC SCH (05:00)
[2017-07-27] MEDS: 0.9 % Sodium Chloride 1,000 ML IVC SCH (05:23)
[2017-07-27] MEDS: Insulin LISPRO 300 UNITS/3 ML VIAL SQ SCH ×3 (05:24→17:00)
[2017-07-27 08:48] LABS: Calcium 8.4 mg/dL (8.6-10.8); Potassium 4.5 mEq/L (3.5-4.5)
[2017-07-27 08:54] LABS: Basophils % 0.1 %; Eosinophils # 0.2 K/mcL (0.0-0.6); Eosinophils % 1.7 %; Hematocrit 36.7 % (37.5-50.1); Hemoglobin 11.4 g/dL (12.9-16.9); Immature Granulocytes % 0.5 % (0-4); Lymphocytes # 1.3 K/mcL (0.6-4.6); Lymphocytes % 14.3 %; Mean Corpuscular HGB Conc 31.1 g/dL (31.6-35.5); Mean Corpuscular Hemoglobin 28.1 pg (28.0-33.3); Mean Corpuscular Volume 90.4 fL (83.0-100.0); Mean Platelet Volume 11.3 fL (9.4-12.4); Monocytes # 0.6 K/mcL (0.0-1.3); Monocytes % 6.9 %; Neutrophils # 7.1 K/mcL (1.6-8.9); Platelet Count 172 K/mcL (140-400); Red Blood Count 4.06 M/mcL (4.19-5.50); Red Cell Distribution Width 15.3 % (11.5-14.5); Segmented Neutrophils % 76.5 %
[2017-07-27] MEDS: Cholecalciferol (D-3) 1,000 UNIT TABLET PO SCH (09:22)
[2017-07-27] MEDS: Gabapentin 300 MG CAPSULE PO SCH ×3 (09:22→20:56)
[2017-07-27] MEDS: Folic Acid 1 MG TABLET PO SCH (09:22)
[2017-07-27] MEDS: Aspirin Enteric Coated 81 MG Tablet PO SCH (09:22)
[2017-07-27] MEDS: Multivit/Ca/Min/Fe/FA 1 TAB TABLET PO SCH ×2 (09:22→20:57)
[2017-07-27] MEDS: Carbidopa/Levodopa 25/250 TABLET PO SCH ×3 (09:23→16:19)
--- NOTE | 2017-07-27 10:10 | Internal Med Progress Note ---
Date of Encounter: 07/27/17 Time of Encounter: 10:02 - Assessment and plan (1) HHNC (hyperglycemic hyperosmolar nonketotic coma) Current Visit: Yes Status: Resolved Assessment and plan: Patient presented with hyperglycemia and diagnosed with diabetes. Blood sugars currently improving. Off IV insulin drip. Continue basal bolus subcutaneous insulin regimen. (2) Acute encephalopathy Current Visit: Yes Status: Acute Assessment and plan: Metabolic encephalopathy, likely related to hyperglycemia versus postictal state. Mental status improving. CT head showed no acute abnormality. Patient has history of seizures and is noted to be on Keppra, however denies any recent episodes of seizures. We will check Keppra level. Fall precautions and supportive care. (3) Atrial fibrillation with RVR Current Visit: Yes Status: Acute Assessment and plan: Heart rate currently better controlled. Patient is not noted to be on any rate control medications at home. Not noted to be on anticoagulation. We will start oral beta rocio, will discontinue Cardizem drip. Continue telemetry monitoring. Echocardiogram from December 2016 shows preserved ejection fraction, mild left ventricular diastolic dysfunction, Mild to moderately dilated left atrium. Mild aortic regurgitation. (4) Essential hypertension Current Visit: Yes Status: Chronic Assessment and plan: Blood pressure well controlled. Continue current medications. (5) Parkinson disease Current Visit: Yes Status: Chronic Assessment and plan: Continue home meds. Follows with neurology as outpatient. (6) Urinary tract infection Current Visit: Yes Status: Acute Assessment and plan: Urinalysis shows too numerous to count WBC, moderate leukocyte esterase. Follow -up urine culture and continue IV Levaquin. Qualifiers: Urinary tract infection type: acute cystitis Hematuria presence: without hematuria Qualified Code(s): N30.00 - Acute cystitis without hematuria (7) Aspiration pneumonia Current Visit: Yes Status: Suspected Assessment and plan: Patient had altered mental status, suspected seizures and aspiration pneumonia. Noted to have dysphagia and failed bedside nursing swallow evaluation. We will await DERMATOLOGY TECHNICIAN evaluation. Keep nothing by mouth for now. Continue IV Levaquin and Flagyl due to penicillin allergy. Follow-up blood cultures. Supplemental oxygen and supportive care. Qualifiers: Aspiration pneumonia type: unspecified Laterality: bilateral Lung location: unspecified part of lung Qualified Code(s): J69.0 - Pneumonitis due to inhalation of food and vomit (8) MARZENA (acute kidney injury) Current Visit: Yes Status: Acute Assessment and plan: Serum creatinine improving. Hold IV hydration for now due to symptoms of volume overload with upper airway wheezing. Continue to monitor. (9) Diabetes mellitus, new onset Current Visit: Yes Status: Acute Assessment and plan: Hemoglobin A1c noted to be 11.3%, new diagnosis. Continue Accu-Chek blood glucose monitoring with sliding scale insulin. Blood sugars improved since admission, currently increasing. Diabetic diet. 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 Continue Keppra. Check Keppra level. Patient did have multiple EEGs in the past which have been normal. Seizure precautions. - Subjective Interval history: Reports no chest or abdominal pain; able to answer some questions but does not remember his complaints at admission; states he takes Keppra at home but has not had seizures in a great while; has some dysphagia with meds per staff design engineer; off insulin drip and is on IV Cardizem drip; - Constitutional Vitals: Temp Pulse Resp BP Pulse Ox 97.9 F 80 16 102/57 92 07/27/17 08:08 07/27/17 08:08 07/27/17 08:08 07/27/17 08:08 07/27/17 08:08 General appearance: Present: A&O X 3, no acute distress, obese. Absent: answers questions appropriately - Respiratory Respiratory exam: Present: rales, rhonchi (B/L diffuse rhonchi and rales). Absent: accessory muscle use, wheezes - Cardiovascular Cardiovascular exam: Present: RRR, +S1, +S2, systolic murmur. Absent: diastolic murmur, gallop, rubs - GI/Abdominal GI/Abdominal exam: Present: normal bowel sounds, soft, no peritoneal signs. Absent: distended, tenderness - Extremities Exam Extremities exam: Present: pedal edema, warm, radial pulses palpable and symmetrical. Absent: calf tenderness, cyanotic - Neurological Exam Neurological exam: Present: altered, CN II-XII intact, no focal deficits. Absent: pronater drift, facial droop, speech deficit Internal Medicine: Result - Labs CBC & Chem 7: 07/27/17 08:25 07/27/17 08:25 Labs: Short CBC 07/27/17 Range/Units 08:25 WBC 9.3 (4.3-11.1) K/mcL Hgb 11.4 L D (12.9-16.9) g/dL Hct 36.7 L (37.5-50.1) % Plt Count 172 (140-400) K/mcL Neutrophils # 7.1 (1.6-8.9) K/mcL BMP 07/26/17 07/26/17 07/27/17 21:36 22:57 01:19 Sodium 144 149 H 147 H Potassium 4.1 D 4.0 4.3 Chloride 112 H 113 H 115 H Carbon Dioxide 21 17 L 25 BUN 36 H 35 H 35 H Creatinine 1.79 H 1.98 H 1.71 H Glucose 631 H* 382 H 183 H Calcium 8.2 L 9.1 8.2 L 07/27/17 08:25 Sodium 146 H Potassium 4.5 Chloride 113 H Carbon Dioxide 26 BUN 34 H Creatinine 1.63 H Glucose 224 H Calcium 8.4 L - ABG Interpretation ABG results: PT/INR, D-dimer PT 14.2 Seconds (9.4-12.1) H 07/26/17 16:44 Consult Discharge Plan - Plan Referrals: Eric Polanco MD [Primary Care Provider] -
[2017-07-27] MEDS ORDERED: *HR* Dextrose 50 % in Water (Syg) 50 ML SYRINGE IVP PRN (16:37)
[2017-07-27] MEDS ORDERED: D5% in Water 1,000 ML IVC PRN (16:37)
[2017-07-27] MEDS ORDERED: Dextrose Gel 15 GM PO PRN ×2 (16:37)
[2017-07-27] MEDS: levETIRAcetam 250 MG TABLET PO SCH (20:56)
[2017-07-27] MEDS: Carbidopa/Levodopa 25/100 TABLET PO SCH (20:57)
[2017-07-28] MEDS: MetroNIDAZOLE 500 MG/100 ML 500 MG/100 ML BAG IVPB SCH ×4 (00:55→23:35)
[2017-07-28] MEDS: Insulin DETEMIR 100 UNIT/ML X5UNITS SQ SCH ×4 (00:55→20:21)
[2017-07-28] MEDS: Insulin LISPRO 300 UNITS/3 ML VIAL SQ SCH ×7 (02:48→20:26)
[2017-07-28] MEDS: dilTIAZem HCl 100 MG in D5% in Water 50 ML IVC SCH (02:49)
[2017-07-28 05:13] LABS: Basophils % 0.3 %; Eosinophils # 0.1 K/mcL (0.0-0.6); Eosinophils % 1.7 %; Hematocrit 36.5 % (37.5-50.1); Hemoglobin 11.2 g/dL (12.9-16.9); Immature Granulocytes % 0.3 % (0-4); Lymphocytes # 1.2 K/mcL (0.6-4.6); Lymphocytes % 17.2 %; Mean Corpuscular HGB Conc 30.7 g/dL (31.6-35.5); Mean Corpuscular Hemoglobin 28.2 pg (28.0-33.3); Mean Corpuscular Volume 91.9 fL (83.0-100.0); Monocytes # 0.6 K/mcL (0.0-1.3); Monocytes % 7.7 %; Neutrophils # 5.2 K/mcL (1.6-8.9); Platelet Count 152 K/mcL (140-400); Red Blood Count 3.97 M/mcL (4.19-5.50); Red Cell Distribution Width 15.4 % (11.5-14.5); Segmented Neutrophils % 72.8 %
[2017-07-28 05:27] LABS: Calcium 7.8 mg/dL (8.6-10.8); Magnesium 2.2 mg/dL (1.6-2.6); Potassium 4.3 mEq/L (3.5-4.5)
--- NOTE | 2017-07-28 05:39 | Event Note ---
Date of Encounter: 07/28/17 Time of Encounter: 05:37 Called by RN around 3:30 and again just now. Pt pulled out his Peguero around 3: 30, had some bloody discharge which stopped. He has not urinated since then, however. I asked RN NOT to place another Peguero, and I am consulting Urology to see him this morning.
[2017-07-28] MEDS: *HR* Enoxaparin 30 MG/0.3 ML SYRINGE SQ SCH (06:03)
[2017-07-28] MEDS: Aspirin Enteric Coated 81 MG Tablet PO SCH (09:02)
[2017-07-28] MEDS: Gabapentin 300 MG CAPSULE PO SCH ×3 (09:02→20:22)
[2017-07-28] MEDS: Multivit/Ca/Min/Fe/FA 1 TAB TABLET PO SCH ×2 (09:03→20:22)
[2017-07-28] MEDS: Cholecalciferol (D-3) 1,000 UNIT TABLET PO SCH (09:03)
[2017-07-28] MEDS: Folic Acid 1 MG TABLET PO SCH (09:03)
[2017-07-28] MEDS: levETIRAcetam 250 MG TABLET PO SCH ×2 (09:03→20:23)
[2017-07-28] MEDS: Carbidopa/Levodopa 25/250 TABLET PO SCH ×3 (09:03→17:14)
--- NOTE | 2017-07-28 10:57 | Urology - Consult Note ---
Date of Encounter: 07/28/17 Time of Encounter: 10:54 - Assessment and Plan (1) Urethral trauma Current Visit: Yes Status: Acute Assessment and plan: 86-year-old man with urethral trauma from removing his catheter. I replaced his Peguero catheter. I recommend leaving this in for 1 week to allow the urethra to heal. He can return for a voiding trial in the urology clinic. Qualifiers: Encounter type: initial encounter Qualified Code(s): S37.30XA - Unspecified injury of urethra, initial encounter (2) Urinary tract infection Current Visit: Yes Status: Acute Assessment and plan: He had a concern for urinary tract infection with yeast. This may be a contaminant from his foreskin. His mental status seems improved currently. Would monitor for now. He is on levofloxacin. His blood culture was negative. Qualifiers: Urinary tract infection type: acute cystitis Hematuria presence: without hematuria Qualified Code(s): N30.00 - Acute cystitis without hematuria Urology CN:HPI Consult date: 07/28/17 Reason for consult Urology: Difficult Peguero Requesting physician: Jose Gomez History of present illness: 86-year-old man was admitted for altered mental status. While in the hospital he developed atrial fibrillation with rapid ventricular rate. A catheter was placed. Overnight he removed the catheter without deflating the balloon. There was bloody drainage from his penis. I was consult to replace his catheter. He reports some improvement in the bleeding. He was able to urinate, but only small volumes. He said the urine was grossly bloody. He says the drainage from his penis has gotten better. Past Med Surg Social Fam HX - Past Medical History Medical history: atrial fibrillation, CHF, hyperlipidemia, hypertension, seizures, other Psychiatric history: depression - Past Surgical History Surgical History: pacemaker/AICD - Social History Smoking Status: Never smoker Smokeless Tobacco Status: No Alcohol use: none Drug use: none Medications and Allergies Atorvastatin Calcium [Lipitor] 20 mg PO QPM 09/25/15 [History] Carbidopa/Levodopa 25/250 [Sinemet 25/250] 1 each PO TID 09/25/15 [History] Cholecalciferol (Vitamin D3) [Vitamin D3] 1,000 unit PO QAM 09/25/15 [History] Entacapone [Comtan] 200 mg PO TID 09/25/15 [History] Ferrous Sulfate 325 mg PO QAM 09/25/15 [History] Folic Acid 0.8 mg PO QAM 09/25/15 [History] Gabapentin [Neurontin] 600 mg PO BID 09/25/15 [History] Gabapentin [Neurontin] 900 mg PO HS 09/25/15 [History] Pantoprazole Sodium [Protonix] 40 mg PO QAM 09/25/15 [History] levETIRAcetam [Keppra] 500 mg PO HS 09/25/15 [History] levETIRAcetam [Keppra] 750 mg PO QAM 09/25/15 [History] Sulfamethoxazole/Trimeth DS [Bactrim DS] 1 each PO BID #14 tablet 07/22/17 [Rx] Apixaban [Eliquis] 5 mg PO BID 07/27/17 [History] Escitalopram [Lexapro] 10 mg PO DAILY 07/27/17 [History] Famotidine [Heartburn Prevention] 20 mg PO HS 07/27/17 [History] Furosemide [Lasix] 20 mg PO 1200 07/27/17 [History] Furosemide [Lasix] 40 mg PO QAM 07/27/17 [History] Loratadine [Claritin] 10 mg PO HS 07/27/17 [History] Metoprolol [Lopressor] 25 mg PO BID 07/27/17 [History] Potassium Chloride [Klor-Con 10] 10 meq PO BID 07/27/17 [History] Rotigotine [Neupro] 4 mg TD HS 07/27/17 [History] Viteyes Areds 2 1 tab PO TID 07/27/17 [History] Viteyes Complete 1 tab PO 1200 07/27/17 [History] clonazePAM [Klonopin] 0.25 mg PO HS 07/27/17 [History] 3 Allergy/AdvReac Type Severity Reaction Status Date / Time codeine Allergy Hives Verified 09/25/15 13:40 Penicillins [PCN] Allergy Hives Verified 09/25/15 16:37 Review of Systems - Constitutional no chills, no fever(s) - EENT Nose, mouth and throat: no dizziness - Cardiovascular no chest pain - Respiratory no dyspnea - Gastrointestinal no nausea, no vomiting - Genitourinary hematuria, no flank pain - Musculoskeletal no back pain - Integumentary no erythema, no rash - Neurological no weakness - Psychiatric no suicidal ideation - Hematologic/Lymphatic no easy bleeding - Allergic/Immunologic no wheezing Exam Initial Vital Signs Temp Pulse Resp BP Pulse Ox 98.1 F 84 18 133/70 95 07/26/17 16:32 07/26/17 16:32 07/26/17 16:32 07/26/17 16:32 07/26/17 16:32 - General physical appearance Present: well developed, well nourished, no distress - Eyes Absent: icteric - ENT Present: normal nares - Neck Present: trachea midline - Respiratory Present: normal respiratory effort - Cardiovascular Cardiovascular exam IM: RRR - Abdomen Abdomen: Present: soft - Genitourinary normal penis with no external lesions, other (Uncircumcised, phimotic foreskin, and blood at the meatus.) Urology Results - Labs 07/28/17 04:46 07/28/17 04:46 Abnormal lab results RBC 3.97 M/mcL (4.19-5.50) L 07/28/17 04:46 Hgb 11.2 g/dL (12.9-16.9) L 07/28/17 04:46 Hct 36.5 % (37.5-50.1) L 07/28/17 04:46 MCHC 30.7 g/dL (31.6-35.5) L 07/28/17 04:46 RDW 15.4 % (11.5-14.5) H 07/28/17 04:46 PT 14.2 Seconds (9.4-12.1) H 07/26/17 16:44 Carboxyhemoglobin 7.4 % (0-5) H 07/26/17 16:44 BUN 34 mg/dL (8-26) H 07/28/17 04:46 Creatinine 1.53 mg/dL (0.72-1.25) H 07/28/17 04:46 Est GFR ( Amer) 52 (> 60) L 07/28/17 04:46 Est GFR (Non-Af Amer) 43 (> 60) L 07/28/17 04:46 Glucose 217 mg/dL (70-99) H 07/28/17 04:46 POC Glucose 229 (58-89) H 07/28/17 05:51 Hemoglobin A1c 11.3 % (-5.6) H 07/26/17 22:57 Calculated Osmolality 308 (280-300) H 07/28/17 04:46 Calcium 7.8 mg/dL (8.6-10.8) L 07/28/17 04:46 Alkaline Phosphatase 127 Units/L (38-126) H 07/26/17 16:44 B-Natriuretic Peptide 170 pg/mL (0-100) H 07/26/17 16:44 Albumin 2.9 g/dL (3.5-5.0) L 07/26/17 16:44 Globulin 4.1 g/dL (2.4-3.5) H 07/26/17 16:44 Albumin/Globulin Ratio 0.7 (1.1-2.2) L 07/26/17 16:44 Urine Clarity Cloudy (Clear) A 07/26/17 17:25 Ur Specific [place] > 1.030 (1.010-1.025) H 07/26/17 17:25 Urine Glucose (UA) >=1000 mg/dL (Normal) H 07/26/17 17:25 Ur Leukocyte Esterase Moderate (Negative) H 07/26/17 17:25 Urine Microscopic WBC TNTC per hpf (0-3) H 07/26/17 17:25 Ur Squamous Epith Cells Many per lpf (None-Few) H 07/26/17 17:25 Urine Bacteria Moderate per hpf (None-Few) H 07/26/17 17:25 Urine Yeast Many per hpf (None Seen) H 07/26/17 17:25 Ur Culture Indicated? YES (NO) A 07/26/17 17:25 Diabetes panel 07/28/17 Range/Units 04:46 Sodium 142 (136-145) mEq/L Potassium 4.3 (3.5-4.5) mEq/L Chloride 108 (98-109) mEq/L Carbon Dioxide 25 (19-29) mEq/L BUN 34 H (8-26) mg/dL Creatinine 1.53 H (0.72-1.25) mg/dL Glucose 217 H (70-99) mg/dL Calcium 7.8 L (8.6-10.8) mg/dL Calcium panel 07/28/17 Range/Units 04:46 Calcium 7.8 L (8.6-10.8) mg/dL Pituitary panel 07/28/17 Range/Units 04:46 Sodium 142 (136-145) mEq/L Potassium 4.3 (3.5-4.5) mEq/L Chloride 108 (98-109) mEq/L Carbon Dioxide 25 (19-29) mEq/L BUN 34 H (8-26) mg/dL Creatinine 1.53 H (0.72-1.25) mg/dL Glucose 217 H (70-99) mg/dL Calcium 7.8 L (8.6-10.8) mg/dL Adrenal panel 07/28/17 Range/Units 04:46 Sodium 142 (136-145) mEq/L Potassium 4.3 (3.5-4.5) mEq/L Chloride 108 (98-109) mEq/L Carbon Dioxide 25 (19-29) mEq/L BUN 34 H (8-26) mg/dL Creatinine 1.53 H (0.72-1.25) mg/dL Glucose 217 H (70-99) mg/dL Calcium 7.8 L (8.6-10.8) mg/dL All other labs normal. Consult Discharge Plan - Plan Referrals: Eric Polanco MD [Primary Care Provider] -
--- NOTE | 2017-07-28 11:19 | Internal Med Progress Note ---
Date of Encounter: 07/28/17 Time of Encounter: 11:17 - Assessment and plan (1) HHNC (hyperglycemic hyperosmolar nonketotic coma) Current Visit: Yes Status: Resolved Assessment and plan: Patient presented with hyperglycemia and diagnosed with diabetes. Blood sugars currently improving. Off IV insulin drip. Continue and adjust basal bolus subcutaneous insulin regimen. (2) Acute encephalopathy Current Visit: Yes Status: Acute Assessment and plan: Metabolic encephalopathy, likely related to hyperglycemia versus postictal state. Mental status improving. CT head showed no acute abnormality. Patient has history of seizures and is noted to be on Keppra, however denies any recent episodes of seizures. Pending Keppra level. Fall precautions and supportive care. Noted to have intermittent episodes of confusion, probably sundowning last night when he pulled out his Peguero catheter. (3) Atrial fibrillation with RVR Current Visit: Yes Status: Acute Assessment and plan: Heart rate currently better controlled. Patient is not noted to be on any rate control medications at home. Not noted to be on anticoagulation. Started on beta rocio, continue the same. Continue telemetry monitoring. Echocardiogram from December 2016 shows preserved ejection fraction, mild left ventricular diastolic dysfunction, Mild to moderately dilated left atrium. Mild aortic regurgitation. (4) Essential hypertension Current Visit: Yes Status: Chronic Assessment and plan: Blood pressure well controlled. Continue current medications. (5) Parkinson disease Current Visit: Yes Status: Chronic Assessment and plan: Continue home meds. Follows with neurology as outpatient. (6) Urinary tract infection Current Visit: Yes Status: Acute Assessment and plan: Urinalysis shows too numerous to count WBC, moderate leukocyte esterase. Urine culture grows yeast, which may be contamination. Qualifiers: Urinary tract infection type: acute cystitis Hematuria presence: without hematuria Qualified Code(s): N30.00 - Acute cystitis without hematuria (7) Aspiration pneumonia Current Visit: Yes Status: Suspected Assessment and plan: Patient had altered mental status, suspected seizures and aspiration pneumonia. Noted to have dysphagia, TRAIN ATTENDANT evaluation recommends regular textures and nectar thick liquids. Continue IV Levaquin and Flagyl due to penicillin allergy. Follow-up blood cultures. Supplemental oxygen and supportive care. Qualifiers: Aspiration pneumonia type: unspecified Laterality: bilateral Lung location: unspecified part of lung Qualified Code(s): J69.0 - Pneumonitis due to inhalation of food and vomit (8) MARZENA (acute kidney injury) Current Visit: Yes Status: Acute Assessment and plan: Serum creatinine improving. Continue to monitor. (9) Diabetes mellitus, new onset Current Visit: Yes Status: Acute Assessment and plan: Hemoglobin A1c noted to be 11.3%, new diagnosis. Blood sugars noted to be elevated. Increase Levemir, continue sliding scale insulin and add nutritional insulin. Continue Accu-Chek blood glucose monitoring. Diabetic diet. 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 Continue Keppra. Pending Keppra level. Patient did have multiple EEGs in the past which have been normal. Seizure precautions. - Subjective Interval history: Reports feeling well; noted to have pulled out his Peguero catheter last night, due to confusion, causing profuse urethral bleeding; Peguero has been replaced by Urology this morning; was seen by TRAIN ATTENDANT and cleared for thickened liquids; no cough, dyspnea, chest pain , palpitations; off IV cardizem drip; - Constitutional Vitals: Temp Pulse Resp BP Pulse Ox 98.2 F 79 18 141/80 90 07/28/17 07:40 07/28/17 09:26 07/28/17 04:20 07/28/17 07:40 07/28/17 07:40 General appearance: Present: A&O X 3, no acute distress, obese, answers questions appropriately - Respiratory Respiratory exam: Present: CTAB (faint end expiratory rhonchi). Absent: accessory muscle use, rales, rhonchi, wheezes - Cardiovascular Cardiovascular exam: Present: RRR, +S1, +S2. Absent: diastolic murmur, gallop, rubs, systolic murmur - GI/Abdominal GI/Abdominal exam: Present: normal bowel sounds, soft, no peritoneal signs. Absent: distended, tenderness - Extremities Exam Extremities exam: Present: pedal edema, warm, radial pulses palpable and symmetrical. Absent: calf tenderness, cyanotic - Neurological Exam Neurological exam: Present: CN II-XII intact, oriented X3, no focal deficits. Absent: pronater drift, facial droop, speech deficit Internal Medicine: Result - Labs CBC & Chem 7: 07/28/17 04:46 07/28/17 04:46 Labs: Short CBC 07/28/17 Range/Units 04:46 WBC 7.2 (4.3-11.1) K/mcL Hgb 11.2 L (12.9-16.9) g/dL Hct 36.5 L (37.5-50.1) % Plt Count 152 (140-400) K/mcL Neutrophils # 5.2 (1.6-8.9) K/mcL BMP 07/28/17 04:46 Sodium 142 Potassium 4.3 Chloride 108 Carbon Dioxide 25 BUN 34 H Creatinine 1.53 H Glucose 217 H Calcium 7.8 L - ABG Interpretation ABG results: PT/INR, D-dimer PT 14.2 Seconds (9.4-12.1) H 07/26/17 16:44 Consult Discharge Plan - Plan Referrals: Eric Polanco MD [Primary Care Provider] -
[2017-07-28] MEDS: Carbidopa/Levodopa 25/100 TABLET PO SCH (20:23)
[2017-07-28] MEDS ORDERED: Levofloxacin 750 MG/150 ML 750 MG/150 ML BAG IVPB SCH (21:00)
[2017-07-29 05:27] LABS: BUN/Creatinine Ratio 25 (6-26); Blood Urea Nitrogen 30 mg/dL (8-26); Calcium 7.8 mg/dL (8.6-10.8); Carbon Dioxide 26 mEq/L (19-29); Chloride 110 mEq/L (98-109); Glucose 110 mg/dL (70-99); Magnesium 1.8 mg/dL (1.6-2.6); Osmolality,Calculated 303 (280-300); Potassium 3.8 mEq/L (3.5-4.5); Sodium 143 mEq/L (136-145); eGFR For African Americans > 60 (> 60); eGFR For Non-African Americans 57 (> 60)
[2017-07-29 05:28] LABS: Basophils % 0.4 %; Eosinophils # 0.1 K/mcL (0.0-0.6); Eosinophils % 1.6 %; Hematocrit 33.2 % (37.5-50.1); Hemoglobin 10.3 g/dL (12.9-16.9); Immature Granulocytes % 0.5 % (0-4); Lymphocytes # 1.1 K/mcL (0.6-4.6); Lymphocytes % 20.1 %; Mean Corpuscular Volume 90.2 fL (83.0-100.0); Monocytes # 0.5 K/mcL (0.0-1.3); Monocytes % 8.5 %; Neutrophils # 3.9 K/mcL (1.6-8.9); Platelet Count 128 K/mcL (140-400); Red Blood Count 3.68 M/mcL (4.19-5.50); Red Cell Distribution Width 15.2 % (11.5-14.5); Segmented Neutrophils % 68.9 %
[2017-07-29] MEDS: *HR* Enoxaparin 30 MG/0.3 ML SYRINGE SQ SCH (06:00)
[2017-07-29] MEDS: Insulin LISPRO 300 UNITS/3 ML VIAL SQ SCH ×7 (08:02→20:03)
[2017-07-29] MEDS: MetroNIDAZOLE 500 MG/100 ML 500 MG/100 ML BAG IVPB SCH (08:14)
[2017-07-29] MEDS: Multivit/Ca/Min/Fe/FA 1 TAB TABLET PO SCH ×2 (08:14→20:03)
[2017-07-29] MEDS: Folic Acid 1 MG TABLET PO SCH (08:14)
[2017-07-29] MEDS: Gabapentin 300 MG CAPSULE PO SCH ×3 (08:14→20:01)
[2017-07-29] MEDS: Insulin DETEMIR 100 UNIT/ML X5UNITS SQ SCH ×2 (08:14→20:03)
[2017-07-29] MEDS: Cholecalciferol (D-3) 1,000 UNIT TABLET PO SCH (08:14)
[2017-07-29] MEDS: Aspirin Enteric Coated 81 MG Tablet PO SCH (08:14)
[2017-07-29] MEDS: Carbidopa/Levodopa 25/250 TABLET PO SCH ×3 (08:14→16:53)
[2017-07-29] MEDS: levETIRAcetam 250 MG TABLET PO SCH ×2 (08:15→20:02)
--- NOTE | 2017-07-29 11:08 | Internal Med Progress Note ---
<Laith Vargas - Last Filed: 07/29/17 16:37> Date of Encounter: 07/29/17 Time of Encounter: 11:08 - Assessment and plan (1) Acute encephalopathy Current Visit: Yes Status: Acute Assessment and plan: Metabolic encephalopathy, likely related to hyperglycemia from HHNS. CT head showed no acute abnormality. Patient has history of seizures and is noted to be on Keppra, however denies any recent episodes of seizures. mental status back to baseline. plan: continue to monitor likely discharge tomorrow once insulin dosing optimal (2) HHNC (hyperglycemic hyperosmolar nonketotic coma) Current Visit: Yes Status: Resolved Assessment and plan: Patient presented with hyperglycemia and diagnosed with diabetes. Blood sugars currently improving. Off IV insulin drip. Continue and adjust basal bolus subcutaneous insulin regimen. (3) Atrial fibrillation with RVR Current Visit: Yes Status: Acute Assessment and plan: patient had episode of Afib RVR on 07/27 Etiology likey secondary to aspiration PNA rate controlled currently with metoprolol 12.5 BID CHADS/VASC: 5 Plan: will repeat Echo in setting of Afib RVR not a candidate for anticoagulation because he has a history of multiple falls at home. (4) Essential hypertension Current Visit: Yes Status: Chronic Assessment and plan: continue home meds (5) Urethral trauma Current Visit: Yes Status: Acute Assessment and plan: seen by urology due to urethral trauma. rec is to leave smith in for 1 week to allow urethra to heal, follow up in urology clinic for voiding trial. Qualifiers: Encounter type: initial encounter Qualified Code(s): S37.30XA - Unspecified injury of urethra, initial encounter (6) Parkinson disease Current Visit: Yes Status: Chronic Assessment and plan: Continue home meds. Follows with neurology as outpatient. (7) Urinary tract infection Current Visit: Yes Status: Acute Assessment and plan: urine culture grew yeast, likely contamination. Qualifiers: Urinary tract infection type: acute cystitis Hematuria presence: without hematuria Qualified Code(s): N30.00 - Acute cystitis without hematuria (8) Aspiration pneumonia Current Visit: Yes Status: Suspected Assessment and plan: Admitted with AMS. Etiology likely secondary to HHNS/aspiration pneumonia- Noted to have dysphagia , SKEIN TIER evaluation recommends regular textures and nectar thick liquids. blood culture negative Plan: continue Levauin and flagyl-switched to orals today wean off oxygen as tolerated. Qualifiers: Aspiration pneumonia type: unspecified Laterality: bilateral Lung location: unspecified part of lung Qualified Code(s): J69.0 - Pneumonitis due to inhalation of food and vomit (9) MARZENA (acute kidney injury) Current Visit: Yes Status: Resolved Assessment and plan: likely secondary to HHNS resolved (10) Diabetes mellitus, new onset Current Visit: Yes Status: Acute Assessment and plan: patient came in with HHNS-new onset DM A1C 11.3 blood sugars in low 200s. Plan: ADA diet 15 units basal insulin BID 4units TID with meals medium dose sliding scale (11) History of pseudoseizure Current Visit: Yes Status: Chronic Assessment and plan: continue home meds (12) DVT prophylaxis Current Visit: No Status: Acute Assessment and plan: lovenox SQ - Subjective Interval history: 86M evaluated at bedside. he denies nauea, vomiting, diarrhea, fever, chills, chest pain, shortness of breath. he denies any further issues today. - Constitutional Vitals: Temp Pulse Resp BP Pulse Ox 97.9 F 81 18 134/72 90 07/29/17 07:49 07/29/17 08:32 07/29/17 07:49 07/29/17 07:49 07/29/17 07:49 General appearance: Present: A&O X 3, no acute distress, obese, answers questions appropriately - Head Head exam: Present: atraumatic, normocephalic - Neck Neck exam general surgery: Present: supple, trachea midline - Respiratory Respiratory exam: Present: rales - Cardiovascular Cardiovascular exam: Present: RRR, +S1, +S2, systolic murmur (+1 systolic murmur noted. ) - GI/Abdominal GI/Abdominal exam: Present: normal bowel sounds, soft. Absent: distended, tenderness - Extremities Exam Extremities exam: Absent: cyanotic, pedal edema - Neurological Exam Neurological exam: Present: alert, oriented X3, no focal deficits - Psychiatric Psychiatric exam: Present: normal affect, normal mood - Skin Skin exam: Present: intact Internal Medicine: Result - Labs CBC & Chem 7: 07/29/17 04:50 07/29/17 04:50 Labs: Short CBC 07/29/17 Range/Units 04:50 WBC 5.7 (4.3-11.1) K/mcL Hgb 10.3 L (12.9-16.9) g/dL Hct 33.2 L (37.5-50.1) % Plt Count 128 L (140-400) K/mcL Neutrophils # 3.9 (1.6-8.9) K/mcL BMP 07/29/17 04:50 Sodium 143 Potassium 3.8 Chloride 110 H Carbon Dioxide 26 BUN 30 H Creatinine 1.21 Glucose 110 H Calcium 7.8 L - ABG Interpretation ABG results: PT/INR, D-dimer PT 14.2 Seconds (9.4-12.1) H 07/26/17 16:44 Consult Discharge Plan - Plan Referrals: Eric Polanco MD [Primary Care Provider] - (This patient is going to [facility] no PCP appointment needed) <Chris Rodriguez - Last Filed: 07/29/17 18:43> Date of Encounter: 07/29/17 - Assessment and plan (1) HHNC (hyperglycemic hyperosmolar nonketotic coma) Current Visit: Yes Status: Resolved (2) Aspiration pneumonia Current Visit: Yes Status: Suspected Qualifiers: Aspiration pneumonia type: unspecified Laterality: bilateral Lung location: unspecified part of lung Qualified Code(s): J69.0 - Pneumonitis due to inhalation of food and vomit (3) Essential hypertension Current Visit: Yes Status: Chronic (4) Parkinson disease Current Visit: Yes Status: Chronic (5) Atrial fibrillation Current Visit: Yes Status: Acute Qualifiers: Atrial fibrillation type: paroxysmal Qualified Code(s): I48.0 - Paroxysmal atrial fibrillation (6) Urinary tract infection Current Visit: Yes Status: Acute Qualifiers: Urinary tract infection type: acute cystitis Hematuria presence: without hematuria Qualified Code(s): N30.00 - Acute cystitis without hematuria (7) Dysphagia Current Visit: Yes Status: Acute Qualifiers: Dysphagia type: oropharyngeal phase Qualified Code(s): R13.12 - Dysphagia, oropharyngeal phase (8) Diastolic CHF, chronic Current Visit: Yes Status: Acute - Constitutional Vitals: Temp Pulse Resp BP Pulse Ox 97.8 F 80 20 116/78 92 07/29/17 16:32 07/29/17 16:32 07/29/17 16:32 07/29/17 16:32 07/29/17 16:32 Internal Medicine: Result - Labs CBC & Chem 7: 07/29/17 04:50 07/29/17 04:50 Labs: Short CBC 07/29/17 Range/Units 04:50 WBC 5.7 (4.3-11.1) K/mcL Hgb 10.3 L (12.9-16.9) g/dL Hct 33.2 L (37.5-50.1) % Plt Count 128 L (140-400) K/mcL Neutrophils # 3.9 (1.6-8.9) K/mcL BMP 07/29/17 04:50 Sodium 143 Potassium 3.8 Chloride 110 H Carbon Dioxide 26 BUN 30 H Creatinine 1.21 Glucose 110 H Calcium 7.8 L - ABG Interpretation ABG results: PT/INR, D-dimer PT 14.2 Seconds (9.4-12.1) H 07/26/17 16:44 - Attending Attestation I examined this patient and my medical decision-making was reviewed with the Resident Physician on 07/29/17. I agree with the documented findings, disposition and treatment plan as described except to the extent set forth below. Mr. Eubanks is currently admitted for new DM with HHNK. He remains moderate to high risk due to potential for worsening clinical status. He has had issues with dysphagia. He had parox a fib as well. Mr Eubanks feels OK at this time. No CP or SOB currently. No fever or chills. Working with therapy. Working on d/c plans for SNF. Exam Alert. Comfortable Heart reg No wheeze Abd soft I/P 1. Asp PNA 2. HHNK resolved 3. New DM Further diagnoses and plan as above.
[2017-07-29] MEDS: metroNIDAZOLE 500 MG TABLET PO SCH (16:53)
[2017-07-29] MEDS ORDERED: Perflutren Lipid Microsphere 1.3 ML in 0.9 % Sodium Chloride 8.7 ML IVP ONE (19:09)
[2017-07-29] MEDS: Carbidopa/Levodopa 25/100 TABLET PO SCH (20:02)
[2017-07-29] MEDS ORDERED: APIXABAN 5 MG TABLET PO SCH (21:00)
[2017-07-30] MEDS: metroNIDAZOLE 500 MG TABLET PO SCH ×2 (00:32→08:04)
--- NOTE | 2017-07-30 06:57 | Electrocardiograph Report ---
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
[2017-07-30 07:06] LABS: Basophils % 0.2 %; Eosinophils # 0.1 K/mcL (0.0-0.6); Eosinophils % 2.3 %; Hematocrit 35.1 % (37.5-50.1); Hemoglobin 11.1 g/dL (12.9-16.9); Immature Granulocytes % 0.6 % (0-4); Lymphocytes # 1.1 K/mcL (0.6-4.6); Lymphocytes % 20.5 %; Mean Corpuscular HGB Conc 31.6 g/dL (31.6-35.5); Mean Corpuscular Hemoglobin 28.4 pg (28.0-33.3); Mean Corpuscular Volume 89.8 fL (83.0-100.0); Mean Platelet Volume 10.8 fL (9.4-12.4); Monocytes # 0.5 K/mcL (0.0-1.3); Monocytes % 10.2 %; Neutrophils # 3.4 K/mcL (1.6-8.9); Platelet Count 131 K/mcL (140-400); Red Blood Count 3.91 M/mcL (4.19-5.50); Segmented Neutrophils % 66.2 %
[2017-07-30 07:07] LABS: BUN/Creatinine Ratio 19 (6-26); Calcium 7.9 mg/dL (8.6-10.8); Carbon Dioxide 22 mEq/L (19-29); Chloride 109 mEq/L (98-109); Glucose 146 mg/dL (70-99); Osmolality,Calculated 297 (280-300); Potassium 3.8 mEq/L (3.5-4.5); Sodium 141 mEq/L (136-145); eGFR For African Americans > 60 (> 60); eGFR For Non-African Americans > 60 (> 60)
[2017-07-30 07:14] LABS: Blood Urea Nitrogen 19 mg/dL (8-26)
[2017-07-30 07:40] VITALS: BP 134/77
[2017-07-30] MEDS: Insulin LISPRO 300 UNITS/3 ML VIAL SQ SCH ×4 (08:02→11:39)
[2017-07-30] MEDS: Gabapentin 300 MG CAPSULE PO SCH (08:03)
[2017-07-30] MEDS: Carbidopa/Levodopa 25/250 TABLET PO SCH (08:03)
[2017-07-30] MEDS: levETIRAcetam 250 MG TABLET PO SCH (08:03)
[2017-07-30] MEDS: Folic Acid 1 MG TABLET PO SCH (08:03)
[2017-07-30] MEDS: Cholecalciferol (D-3) 1,000 UNIT TABLET PO SCH (08:04)
[2017-07-30] MEDS: Multivit/Ca/Min/Fe/FA 1 TAB TABLET PO SCH (08:04)
[2017-07-30] MEDS: Insulin DETEMIR 100 UNIT/ML X5UNITS SQ SCH (08:53)
[2017-07-30] MEDS ORDERED: Aspirin 81 MG TAB.CHEW PO SCH (09:00)
[2017-07-30] MEDS ORDERED: levoFLOXacin 750 MG TABLET PO SCH (09:00)
--- NOTE | 2017-07-30 09:50 | Discharge Summary ---
<Laith Vargas - Last Filed: 07/30/17 09:48> Date of Encounter: 07/30/17 Time of Encounter: 09:48 - Discharge Diagnosis (1) HHNC (hyperglycemic hyperosmolar nonketotic coma) Priority: Primary Status: Resolved (2) Acute encephalopathy Priority: Secondary Status: Acute (3) Atrial fibrillation with RVR Priority: Secondary Status: Acute (4) Essential hypertension Priority: Secondary Status: Chronic (5) Urethral trauma Priority: Secondary Status: Acute Qualifiers: Encounter type: initial encounter Qualified Code(s): S37.30XA - Unspecified injury of urethra, initial encounter (6) Parkinson disease Priority: Secondary Status: Chronic (7) Urinary tract infection Priority: Secondary Status: Inactive Qualifiers: Urinary tract infection type: acute cystitis Hematuria presence: without hematuria Qualified Code(s): N30.00 - Acute cystitis without hematuria (8) Aspiration pneumonia Priority: Secondary Status: Suspected Qualifiers: Aspiration pneumonia type: unspecified Laterality: bilateral Lung location: unspecified part of lung Qualified Code(s): J69.0 - Pneumonitis due to inhalation of food and vomit (9) MARZENA (acute kidney injury) Priority: Secondary Status: Resolved (10) Diabetes mellitus, new onset Priority: Secondary Status: Acute (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 (12) DVT prophylaxis Priority: Secondary Status: Acute - Discharge Medications Prescriptions: clonazePAM [Klonopin] 0.25 mg PO HS #5 tablet levoFLOXacin [Levaquin] 750 mg PO Q48H #3 tablet metroNIDAZOLE [Flagyl] 500 mg PO Q8H #21 tablet Home Medications: Atorvastatin Calcium [Lipitor] 20 mg PO QPM 09/25/15 [History] Carbidopa/Levodopa 25/250 [Sinemet 25/250] 1 each PO TID 09/25/15 [History] Cholecalciferol (Vitamin D3) [Vitamin D3] 1,000 unit PO QAM 09/25/15 [History] Entacapone [Comtan] 200 mg PO TID 09/25/15 [History] Ferrous Sulfate 325 mg PO QAM 09/25/15 [History] Folic Acid 0.8 mg PO QAM 09/25/15 [History] Pantoprazole Sodium [Protonix] 40 mg PO QAM 09/25/15 [History] levETIRAcetam [Keppra] 500 mg PO HS 09/25/15 [History] levETIRAcetam [Keppra] 750 mg PO QAM 09/25/15 [History] Apixaban [Eliquis] 5 mg PO BID 07/27/17 [History] Escitalopram [Lexapro] 10 mg PO DAILY 07/27/17 [History] Famotidine [Heartburn Prevention] 20 mg PO HS 07/27/17 [History] Furosemide [Lasix] 20 mg PO 1200 07/27/17 [History] Furosemide [Lasix] 40 mg PO QAM 07/27/17 [History] Loratadine [Claritin] 10 mg PO HS 07/27/17 [History] Metoprolol [Lopressor] 25 mg PO BID 07/27/17 [History] Potassium Chloride [Klor-Con 10] 10 meq PO BID 07/27/17 [History] Rotigotine [Neupro] 4 mg TD HS 07/27/17 [History] Viteyes Areds 2 1 tab PO TID 07/27/17 [History] Viteyes Complete 1 tab PO 1200 07/27/17 [History] Aspirin 81 mg PO DAILY tab.chew 07/30/17 [Rx] Gabapentin [Neurontin] 600 mg PO TID #0 07/30/17 [Rx] Insulin DETEMIR [Levemir] 25 unit SQ BID [id number] 07/30/17 [Rx] Insulin LISPRO [HumaLOG] 0 units SQ HS vial 07/30/17 [Rx] Insulin LISPRO [HumaLOG] 0 units SQ TIDAC vial 07/30/17 [Rx] Insulin LISPRO [HumaLOG] 4 units SQ TIDWM vial 07/30/17 [Rx] clonazePAM [Klonopin] 0.25 mg PO HS #5 tablet 07/30/17 [Rx] levoFLOXacin [Levaquin] 750 mg PO Q48H #3 tablet 07/30/17 [Rx] metroNIDAZOLE [Flagyl] 500 mg PO Q8H #21 tablet 07/30/17 [Rx] Allergies/Adverse Reactions: 3 Allergy/AdvReac Type Severity Reaction Status Date / Time codeine Allergy Hives Verified 09/25/15 13:40 Penicillins [PCN] Allergy Hives Verified 09/25/15 16:37 Procedures/tests Complete & Pending: Procedures Performed prior 72 hours Category Date Time Status EV echocardiogram w enhance Routine Y 07/29/17 11:43 Completed Date of admission: 07/26/17 19:46 Primary care physician: Eric Polanco MD Consults: 07/26/17 20:41 Consult to Pastoral Services [CONS] Routine Comment: Consult to Asphalt Spreader [CONS] Routine Reason for SW Consult: discharge planning, SNIF, placement to custodial after 07/26/17 20:59 Consult to Speech Therapy [CONS] Routine Comment: Evaluate, develop and implement POC Reason for Consult: Aspiration pneumonia. Call Completed: No 07/28/17 05:35 Consult to Urology [CONS] Routine Consulting Provider: Linda Mcmahon Reason for Consult: pt pulled out Moreno, had some bloody urine, then stopped , no urine output since pulling it out around 3 am. Call Completed: No 07/28/17 09:37 Consult to Occupational Therapy [CONS] Routine Comment: Evaluate, develop and implement POC Reason for Consult: Discharge planning Consult to Physical Therapy [CONS] Routine Comment: Evaluate, develop and implement POC Reason for Consult: Discharge planning Discharging clinician: Laith Vargas Anticipated date of discharge: 07/30/17 - Patient Status Disposition: Transfer SNF Condition: Fair Functional capacity at discharge: uses cane/walker Overall status at discharge: patient is back to baseline - Discharge Instructions Follow Up With: Eric Polanco MD [Primary Care Provider] - (This patient is going to [facility] no PCP appointment needed) Bryce Cooper MD [Partnered Physician] - Additional Instructions: Follow up with primary care provider within one week of discharge please follow up with urology within one week to have your catheter removed. keep moreno catheter in for one week, as per urology instructions. please take all your insulin as prescribed follow instruction of physical therapists return to emergency department immediately if you develop fever, chills, chest pain, shortness of breath, or become confused. finish antibiotic course as prescribed: Levaquin q48H (last dose given 07/30), Flagyl TID - Diet and Activity Activity: as per physical therapy Diet: diabetic diet, low fat, low cholesterol Hospital course: Mr. Eubanks is a 86 year old male with PMHx of Afib (on Eliquis), CHF, HLD, HTN , pseudo-seizures, Parkinsons, placement of AICD/pacemaker. Patient arrived to [facility] on 07/26/17 with altered mental status. Patient's daughter was at bedside. Patient normally lives at assisted care for ten months and since has been showing progressive mental decline. He had been showing symptoms of incontinence , non compliance with medications, and had become significantly weak. patient was admitted for further workup. CT head showed no acute abnormality. CXR showed bibasilar opacities, but superimposed pneumonia could not be excluded. There was concern for aspiration pneumonia secondary to his altered mental status, he was started on antibiotics. Patient's blood glucose was also found to be 862 on arrival and osmolality 341. He was diagnosed with HHNS and new onset diabetes. Patient was started on insulin gtt and HHNS protocol. He was eventually transitioned to subcutaneous insulin and his doses were adjusted based on his blood sugars. His ideal dose in hospital was levemir 25 units BID with 4 units TID mealtime insulin plus low dose sliding scale. Patient initially had MARZENA upon admission which resolved with IVF. During his hospitalization, patient went into Afib RVR and responded to cardizem gtt. repeat echo was ordered, report pending. Patient will be discharged home if his repeat echo shows no significant change from his prior echo. During his hospitalization, patient had pulled out his moreno catheter and had a significant amount of bleeding. Consult to urology was made, and it was determined that his bleeding was due to urethral trauma. Moreno catheter was replaced and it was recommended leaving moreno in for one week with outpatient follow up with urology for voiding trial. Patient will be discharged to intermediate in stable condition. Plan: - Time Spent with Patient Total time spent providing and/or coordinating discharge services: - Constitutional Vitals: Temp Pulse Resp BP Pulse Ox 98.1 F 93 20 134/77 93 07/30/17 07:37 07/30/17 08:00 07/30/17 07:37 07/30/17 07:37 07/30/17 07:37 General appearance: Present: A&O X 3, no acute distress, obese, answers questions appropriately - Head Head exam: Present: atraumatic, normocephalic - Neck Neck exam general surgery: Present: supple, trachea midline - Respiratory Respiratory exam: Present: CTAB - Cardiovascular Cardiovascular exam: Present: RRR, +S1, +S2 - GI/Abdominal GI/Abdominal exam: Present: distended, firm, normal bowel sounds. Absent: tenderness - Extremities Exam Extremities exam: Absent: cyanotic, pedal edema - Neurological Exam Neurological exam: Present: alert, oriented X3, no focal deficits - Psychiatric Psychiatric exam: Present: normal affect, normal mood - Skin Skin exam: Absent: cyanosis, dry <Chris Rodriguez A - Last Filed: 07/30/17 17:20> Date of Encounter: 07/30/17 - Discharge Diagnosis (1) HHNC (hyperglycemic hyperosmolar nonketotic coma) Status: Resolved (2) Aspiration pneumonia Status: Suspected Qualifiers: Aspiration pneumonia type: unspecified Laterality: bilateral Lung location: unspecified part of lung Qualified Code(s): J69.0 - Pneumonitis due to inhalation of food and vomit (3) Essential hypertension Status: Chronic (4) Parkinson disease Status: Chronic (5) Atrial fibrillation Priority: Secondary Status: Chronic Qualifiers: Atrial fibrillation type: paroxysmal Qualified Code(s): I48.0 - Paroxysmal atrial fibrillation (6) Urethral trauma Status: Acute Qualifiers: Encounter type: subsequent encounter Qualified Code(s): S37.30XD - Unspecified injury of urethra, subsequent encounter (7) Urinary tract infection Status: Inactive Qualifiers: Urinary tract infection type: acute cystitis Hematuria presence: without hematuria Qualified Code(s): N30.00 - Acute cystitis without hematuria (8) Dysphagia Priority: Secondary Status: Chronic Qualifiers: Dysphagia type: oropharyngeal phase Qualified Code(s): R13.12 - Dysphagia, oropharyngeal phase (9) Diastolic CHF, chronic Priority: Secondary Status: Chronic Procedures/tests Complete & Pending: Procedures Performed prior 72 hours Category Date Time Status EV echocardiogram w enhance Routine Y 07/29/17 11:43 Completed Date of admission: 07/26/17 19:46 Primary care physician: Eric Polanco MD Consults: 07/26/17 20:41 Consult to Pastoral Services [CONS] Routine Comment: Consult to Asphalt Spreader [CONS] Routine Reason for SW Consult: discharge planning, SNIF, placement to custodial after 07/26/17 20:59 Consult to Speech Therapy [CONS] Routine Comment: Evaluate, develop and implement POC Reason for Consult: Aspiration pneumonia. Call Completed: No 07/28/17 05:35 Consult to Urology [CONS] Routine Consulting Provider: [facility] Reason for Consult: pt pulled out Moreno, had some bloody urine, then stopped , no urine output since pulling it out around 3 am. Call Completed: No 07/28/17 09:37 Consult to Occupational Therapy [CONS] Routine Comment: Evaluate, develop and implement POC Reason for Consult: Discharge planning Consult to Physical Therapy [CONS] Routine Comment: Evaluate, develop and implement POC Reason for Consult: Discharge planning Hospital course: Mr. Eubanks is a 86 year old male - Time Spent with Patient Total time spent providing and/or coordinating discharge services: 39min - Constitutional Vitals: Temp Pulse Resp BP Pulse Ox 98.1 F 93 20 134/77 93 07/30/17 07:37 07/30/17 08:00 07/30/17 07:37 07/30/17 07:37 07/30/17 07:37 - Attending Attestation I examined this patient and my medical decision-making was reviewed with the Resident Physician on 07/30/17. I agree with the documented findings, disposition and treatment plan as described except to the extent set forth below. Mr Eubanks has been admitted for new diabetes with HHNC. He is now afebrile with stable vitals. Blood sugar fairly controlled with current regimen. He is ready for discharge to SNF. Exam Alert. Comfortable Mucus membranes dry Heart reg No wheeze Abd soft No edema Plan D/C to SNF today.
--- NOTE | 2017-07-30 11:24 | Physician Discharge Referral ---
ExtendedCare Referral Info Provider in Charge after Transfer: PCP Institutional Level of Care: Skilled - Diagnosis (1) HHNC (hyperglycemic hyperosmolar nonketotic coma) Priority: Primary Status: Resolved (2) Acute encephalopathy Priority: Secondary Status: Acute (3) Atrial fibrillation with RVR Priority: Secondary Status: Acute (4) Essential hypertension Priority: Secondary Status: Chronic (5) Urethral trauma Priority: Secondary Status: Acute (6) Parkinson disease Priority: Secondary Status: Chronic (7) Urinary tract infection Priority: Secondary Status: Inactive (8) Aspiration pneumonia Priority: Secondary Status: Suspected (9) MARZENA (acute kidney injury) Priority: Secondary Status: Resolved (10) Diabetes mellitus, new onset Priority: Secondary Status: Acute (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 (12) DVT prophylaxis Priority: Secondary Status: Acute Prognosis: Fair Aware of Diagnosis: Family Aware of Prognosis: Family - Transfer Medications Prescriptions: clonazePAM [Klonopin] 0.25 mg PO HS #5 tablet levoFLOXacin [Levaquin] 750 mg PO Q48H #3 tablet metroNIDAZOLE [Flagyl] 500 mg PO Q8H #21 tablet Home Medications: Atorvastatin Calcium [Lipitor] 20 mg PO QPM 09/25/15 [History] Carbidopa/Levodopa 25/250 [Sinemet 25/250] 1 each PO TID 09/25/15 [History] Cholecalciferol (Vitamin D3) [Vitamin D3] 1,000 unit PO QAM 09/25/15 [History] Entacapone [Comtan] 200 mg PO TID 09/25/15 [History] Ferrous Sulfate 325 mg PO QAM 09/25/15 [History] Folic Acid 0.8 mg PO QAM 09/25/15 [History] Pantoprazole Sodium [Protonix] 40 mg PO QAM 09/25/15 [History] levETIRAcetam [Keppra] 500 mg PO HS 09/25/15 [History] levETIRAcetam [Keppra] 750 mg PO QAM 09/25/15 [History] Apixaban [Eliquis] 5 mg PO BID 07/27/17 [History] Escitalopram [Lexapro] 10 mg PO DAILY 07/27/17 [History] Famotidine [Heartburn Prevention] 20 mg PO HS 07/27/17 [History] Furosemide [Lasix] 20 mg PO 1200 07/27/17 [History] Furosemide [Lasix] 40 mg PO QAM 07/27/17 [History] Loratadine [Claritin] 10 mg PO HS 07/27/17 [History] Metoprolol [Lopressor] 25 mg PO BID 07/27/17 [History] Potassium Chloride [Klor-Con 10] 10 meq PO BID 07/27/17 [History] Rotigotine [Neupro] 4 mg TD HS 07/27/17 [History] Viteyes Areds 2 1 tab PO TID 07/27/17 [History] Viteyes Complete 1 tab PO 1200 07/27/17 [History] Aspirin 81 mg PO DAILY tab.chew 07/30/17 [Rx] Gabapentin [Neurontin] 600 mg PO TID #0 07/30/17 [Rx] Insulin DETEMIR [Levemir] 25 unit SQ BID [id number] 07/30/17 [Rx] Insulin LISPRO [HumaLOG] 0 units SQ HS vial 07/30/17 [Rx] Insulin LISPRO [HumaLOG] 0 units SQ TIDAC vial 07/30/17 [Rx] Insulin LISPRO [HumaLOG] 4 units SQ TIDWM vial 07/30/17 [Rx] clonazePAM [Klonopin] 0.25 mg PO HS #5 tablet 07/30/17 [Rx] levoFLOXacin [Levaquin] 750 mg PO Q48H #3 tablet 07/30/17 [Rx] metroNIDAZOLE [Flagyl] 500 mg PO Q8H #21 tablet 07/30/17 [Rx] Allergies/Adverse Reactions: 3 Allergy/AdvReac Type Severity Reaction Status Date / Time codeine Allergy Hives Verified 09/25/15 13:40 Penicillins [PCN] Allergy Hives Verified 09/25/15 16:37 - Respiratory Orders Smoking Cessation: Smoking cessation has been advised. For more information, call the [place] Tobacco Quit Line at 6-629-JCKW-NOW. - Advance Directives Power of Auto Electrician: Yes Code Status: DNR-Arrest/Don't Intubate - Mobility Orders Ambulate CERTIFICATION: I certify that the transfer of the above named patient to an Extended Care Facility is necessary for the continuing treatment of the diagnosis listed. The above information is true and accurate reflection of patient's current condition. Confidential - Redisclosure prohibited without a patient's written consent.
--- NOTE | 2017-07-30 12:27 | Electrocardiograph Report ---
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
== END 2017-07-30 13:19 | DRG 637 ==
LOC: EMEROO 16:26 → 2NNU 19:46 → SUATTDRO 19:46 → 2NNU 20:12
PROVIDERS: ADMIT Internal Medicine Hematology & Oncology; ATTEND Internal Medicine

== ENCOUNTER 2019-07-01 08:51 | Inpatient (IN) ==
[2019-07-01 09:26] LABS: INR 1.5; Prothrombin Time 16.9 Seconds (9.4-12.1)
[2019-07-01 09:27] LABS: Basophils % 0.2 %; Eosinophils % 0.9 %; Hematocrit 42.4 % (37.5-50.1); Hemoglobin 13.6 g/dL (12.9-16.9); Lymphocytes # 0.9 K/mcL (0.6-4.6); Lymphocytes % 20.2 %; Mean Corpuscular HGB Conc 32.1 g/dL (31.6-35.5); Mean Corpuscular Hemoglobin 31.5 pg (28.0-33.3); Mean Corpuscular Volume 98.1 fL (83.0-100.0); Mean Platelet Volume 10.1 fL (9.4-12.4); Monocytes # 0.5 K/mcL (0.0-1.3); Monocytes % 11.6 %; Platelet Count 124 K/mcL (140-400); Red Blood Count 4.32 M/mcL (4.19-5.50); Red Cell Distribution Width 15.1 % (11.5-14.5); Segmented Neutrophils % 67.1 %; White Blood Count 4.5 K/mcL (4.3-11.1)
[2019-07-01 10:07] LABS: Alanine Aminotransferase < 3 Units/L (7-52); Albumin 3.8 g/dL (3.5-5.7); Albumin/Globulin Ratio 1.3 (1.1-2.2); Alkaline Phosphatase 69 Units/L (34-104); Aspartate Amino Transferase 9 Units/L (13-39); BUN/Creatinine Ratio 16 (6-26); Bilirubin,Direct 0.1 mg/dL (0.0-0.2); Bilirubin,Indirect 0.7 mg/dL (0.0-1.0); Bilirubin,Total 0.8 mg/dL (0.3-1.0); Blood Urea Nitrogen 23 mg/dL (8-23); Calcium 8.7 mg/dL (8.6-10.3); Carbon Dioxide 41 mEq/L (23-29); Chloride 99 mEq/L (98-107); Globulin 2.9 g/dL (2.4-3.5); Glucose 78 mg/dL (70-105); Osmolality,Calculated 305 (280-300); Potassium 4.3 mEq/L (3.5-5.1); Sodium 146 mEq/L (136-145); Total Protein 6.7 g/dL (6.4-8.9); Troponin I < 0.03 ng/mL (< 0.04); eGFR For African Americans 56 (> 60); eGFR For Non-African Americans 46 (> 60)
[2019-07-01] MEDS ORDERED: 0.9 % Sodium Chloride 500 ML IVC ONE ×2 (10:20→12:45)
[2019-07-01] MEDS ORDERED: Azithromycin 500 MG in 0.9 % Sodium Chloride 250 ML IVPB ONE ×2 (11:38→13:00)
[2019-07-01] MEDS ORDERED: Naloxone 0.4 MG/ML INJ IVP PRN (11:56)
[2019-07-01] MEDS ORDERED: Artificial Tears SOLN 15 ML BOTTLE BOTH EYES PRN (11:57)
[2019-07-01] MEDS ORDERED: Cefepime HCl 2,000 MG in Water for inj. (sterile) 20 ML IVP SCH (12:00)
[2019-07-01 12:39] LABS: VBG HCO3 40 mEq/L (21-27); VBG PCO2 73 mmHg (41-51); VBG PH 7.35 pH Units (7.32-7.42); VBG PO2 65 mmHg (25-50)
[2019-07-01 12:54] LABS: ABG Base Excess 13 mEq/L (-2 to 3); ABG HCO3 40 mEq/L (21-27); ABG Oxygen Saturation 89 % (95-98); ABG PCO2 62 mmHg (35-45); ABG PH 7.42 pH Units (7.32-7.45); ABG PO2 58 mmHg (85-104); ABG TCO2 42 mEq/L (20-26)
[2019-07-01] MEDS ORDERED: Dextrose Gel 15 GM/37.5 ML TUBE PO PRN ×2 (13:19)
[2019-07-01] MEDS ORDERED: D5% in Water 1,000 ML IVC PRN (13:19)
[2019-07-01] MEDS ORDERED: *HR* Dextrose 50 % in Water (Syg) 50 ML SYRINGE IVP PRN (13:19)
[2019-07-01] MEDS: Furosemide 40 MG/4 ML VIAL IVP SCH (15:35)
[2019-07-01 15:38] LABS: Bilirubin,Urine Negative (Negative); Blood,Urine Large (Negative); Clarity,Urine Clear (Clear); Color,Urine Yellow (Yellow); Glucose,Urine (UA) Normal (Normal); Ketones,Urine Trace mg/dL (Negative); Leukocyte Esterase,Urine Negative (Negative); Nitrite,Urine Negative (Negative); Protein,Urine 30 mg/dL (Neg-Trace); Specific Gravity,Urine 1.019 (1.010-1.025); Urobilinogen,Urine Normal (Normal)
[2019-07-01 15:40] LABS: Bacteria,Urine None Seen per hpf (None-Few); Hyaline Casts,Urine None Seen per lpf (None-Few); RBC,Urine TNTC per hpf (0-3); Squamous Epithelial Cell,Urine Many per lpf (None-Few)
[2019-07-01] MEDS: Ipratropium/Albuterol Neb 3 ML IH SCH ×3 (15:45→23:27)
[2019-07-01] MEDS: predniSONE 20 MG TABLET PO SCH (15:48)
[2019-07-01] MEDS: Carbidopa/Levodopa 25/250 TABLET PO SCH ×2 (15:49→20:22)
[2019-07-01] MEDS ORDERED: levETIRAcetam 1,000 MG in 0.9 % Sodium Chloride 100 ML IVPB ONE (17:52)
[2019-07-01] MEDS ORDERED: Cefepime HCl 2,000 MG in 0.9 % Sodium Chloride Mini Bag 100 ML IVPB SCH ×2 (18:00→21:00)
[2019-07-01] MEDS: Budesonide/Formoterol 160/4.5 1 PUFF INH IH SCH (19:41)
[2019-07-01] MEDS ORDERED: Insulin DETEMIR 100 UNIT/ML X5UNITS SQ SCH (20:00)
[2019-07-01] MEDS ORDERED: levETIRAcetam 250 MG TABLET PO SCH (20:00)
[2019-07-01] MEDS: Apixaban 5 MG TABLET PO SCH (20:22)
[2019-07-01] MEDS: levETIRAcetam 250 MG TABLET PO SCH (20:22)
[2019-07-01] MEDS: Insulin DETEMIR 100 UNIT/ML X5UNITS SQ SCH (20:47)
[2019-07-02] MEDS: Ipratropium/Albuterol Neb 3 ML IH SCH ×6 (03:32→23:10)
[2019-07-02] MEDS: Insulin DETEMIR 100 UNIT/ML X5UNITS SQ SCH ×2 (05:28→20:29)
[2019-07-02 05:47] LABS: Basophils % 0.2 %; Hematocrit 39.1 % (37.5-50.1); Hemoglobin 12.5 g/dL (12.9-16.9); Lymphocytes # 0.6 K/mcL (0.6-4.6); Lymphocytes % 12.9 %; Mean Corpuscular Hemoglobin 31.3 pg (28.0-33.3); Mean Corpuscular Volume 97.8 fL (83.0-100.0); Mean Platelet Volume 10.8 fL (9.4-12.4); Monocytes # 0.3 K/mcL (0.0-1.3); Monocytes % 5.4 %; Neutrophils # 3.8 K/mcL (1.6-8.9); Platelet Count 127 K/mcL (140-400); Red Cell Distribution Width 14.7 % (11.5-14.5); Segmented Neutrophils % 81.5 %; White Blood Count 4.6 K/mcL (4.3-11.1)
[2019-07-02 06:09] LABS: Calcium 8.7 mg/dL (8.6-10.3); Magnesium 2.2 mg/dL (1.6-2.6); Phosphorous 3.5 mg/dL (2.7-4.5); Potassium 4.1 mEq/L (3.5-5.1)
[2019-07-02] MEDS: Budesonide/Formoterol 160/4.5 1 PUFF INH IH SCH ×2 (07:27→19:42)
[2019-07-02] MEDS ORDERED: levETIRAcetam 250 MG TABLET PO SCH (08:00)
[2019-07-02] MEDS ORDERED: Cefepime HCl 2,000 MG in 0.9 % Sodium Chloride Mini Bag 100 ML IVPB SCH (08:00)
[2019-07-02] MEDS: Furosemide 40 MG/4 ML VIAL IVP SCH (09:49)
[2019-07-02] MEDS: Cefepime HCl 2,000 MG in 0.9 % Sodium Chloride Mini Bag 100 ML IVPB SCH ×2 (09:49→17:09)
[2019-07-02] MEDS: levETIRAcetam 250 MG TABLET PO SCH ×2 (09:52→20:29)
[2019-07-02] MEDS: predniSONE 20 MG TABLET PO SCH (09:52)
[2019-07-02] MEDS: Folic Acid 1 MG TABLET PO SCH (09:53)
[2019-07-02] MEDS: Apixaban 5 MG TABLET PO SCH ×2 (09:53→20:29)
[2019-07-02] MEDS: Azithromycin 500 MG in 0.9 % Sodium Chloride 250 ML IVPB SCH (09:53)
[2019-07-02] MEDS: Cholecalciferol (D-3) 1,000 UNIT (25MCG) TABLET PO SCH (09:53)
[2019-07-02] MEDS ORDERED: D5% in Water 1,000 ML IVC PRN (11:41)
[2019-07-02] MEDS ORDERED: Dextrose Gel 15 GM/37.5 ML TUBE PO PRN ×2 (11:41)
[2019-07-02] MEDS ORDERED: *HR* Dextrose 50 % in Water (Syg) 50 ML SYRINGE IVP PRN (11:41)
[2019-07-02] MEDS: Carbidopa/Levodopa 25/250 TABLET PO SCH ×3 (11:49→21:30)
[2019-07-02] MEDS ORDERED: Insulin LISPRO 300 UNITS/3 ML VIAL SQ ONE (11:53)
[2019-07-02] MEDS: Insulin LISPRO 300 UNITS/3 ML VIAL SQ SCH ×3 (11:54→20:30)
[2019-07-03 04:01] LABS: Basophils % 0.2 %; Eosinophils % 0.2 %; Hematocrit 34.6 % (37.5-50.1); Hemoglobin 11.2 g/dL (12.9-16.9); Immature Granulocytes % 0.2 % (0-4); Lymphocytes # 0.8 K/mcL (0.6-4.6); Lymphocytes % 13.4 %; Mean Corpuscular HGB Conc 32.4 g/dL (31.6-35.5); Mean Corpuscular Volume 95.8 fL (83.0-100.0); Mean Platelet Volume 10.7 fL (9.4-12.4); Monocytes # 0.5 K/mcL (0.0-1.3); Monocytes % 9.2 %; Neutrophils # 4.4 K/mcL (1.6-8.9); Platelet Count 111 K/mcL (140-400); Red Blood Count 3.61 M/mcL (4.19-5.50); Red Cell Distribution Width 14.9 % (11.5-14.5); Segmented Neutrophils % 76.8 %; White Blood Count 5.7 K/mcL (4.3-11.1)
[2019-07-03 04:20] LABS: Calcium 8.6 mg/dL (8.6-10.3); Potassium 3.6 mEq/L (3.5-5.1)
[2019-07-03] MEDS: Ipratropium/Albuterol Neb 3 ML IH SCH ×5 (04:26→20:00)
[2019-07-03] MEDS ORDERED: traMADol 50 MG TABLET PO ONE (04:26)
[2019-07-03] MEDS: Insulin DETEMIR 100 UNIT/ML X5UNITS SQ SCH ×2 (04:56→20:40)
[2019-07-03] MEDS: Cefepime HCl 2,000 MG in 0.9 % Sodium Chloride Mini Bag 100 ML IVPB SCH ×2 (04:56→16:58)
[2019-07-03 05:15] LABS: Bilirubin,Urine Negative (Negative); Blood,Urine Moderate (Negative); Clarity,Urine Clear (Clear); Color,Urine Yellow (Yellow); Glucose,Urine (UA) Normal (Normal); Ketones,Urine Trace mg/dL (Negative); Leukocyte Esterase,Urine Negative (Negative); Nitrite,Urine Negative (Negative); Protein,Urine Trace mg/dL (Neg-Trace); Specific Gravity,Urine 1.019 (1.010-1.025); Urobilinogen,Urine Normal (Normal)
[2019-07-03 05:17] LABS: Bacteria,Urine None Seen per hpf (None-Few); Hyaline Casts,Urine None Seen per lpf (None-Few); RBC,Urine 30-50 per hpf (0-3); Squamous Epithelial Cell,Urine Many per lpf (None-Few); WBC,Urine 0-3 per hpf (0-3)
[2019-07-03] MEDS: Budesonide/Formoterol 160/4.5 1 PUFF INH IH SCH ×2 (07:39→20:00)
[2019-07-03] MEDS: Azithromycin 500 MG in 0.9 % Sodium Chloride 250 ML IVPB SCH (08:14)
[2019-07-03] MEDS: Furosemide 40 MG/4 ML VIAL IVP SCH (08:15)
[2019-07-03] MEDS: Carbidopa/Levodopa 25/250 TABLET PO SCH ×3 (08:15→20:40)
[2019-07-03] MEDS: levETIRAcetam 250 MG TABLET PO SCH ×2 (08:15→20:39)
[2019-07-03] MEDS: Folic Acid 1 MG TABLET PO SCH (08:16)
[2019-07-03] MEDS: Cholecalciferol (D-3) 1,000 UNIT (25MCG) TABLET PO SCH (08:16)
[2019-07-03] MEDS: Insulin LISPRO 300 UNITS/3 ML VIAL SQ SCH ×4 (08:16→20:42)
[2019-07-03] MEDS: Apixaban 5 MG TABLET PO SCH ×2 (08:16→20:39)
[2019-07-03] MEDS: predniSONE 20 MG TABLET PO SCH (08:16)
[2019-07-04] MEDS: Ipratropium/Albuterol Neb 3 ML IH SCH ×7 (00:42→22:56)
[2019-07-04] MEDS: Cefepime HCl 2,000 MG in 0.9 % Sodium Chloride Mini Bag 100 ML IVPB SCH ×2 (05:25→17:44)
[2019-07-04] MEDS: Insulin DETEMIR 100 UNIT/ML X5UNITS SQ SCH ×2 (05:30→20:52)
[2019-07-04] MEDS: Acetaminophen 325 MG TABLET PO PRN (05:38)
[2019-07-04] MEDS: Budesonide/Formoterol 160/4.5 1 PUFF INH IH SCH ×2 (07:46→19:26)
[2019-07-04 09:02] LABS: Basophils % 0.1 %; Eosinophils # 0.1 K/mcL (0.0-0.6); Eosinophils % 0.7 %; Hematocrit 37.7 % (37.5-50.1); Hemoglobin 12.7 g/dL (12.9-16.9); Immature Granulocytes % 0.3 % (0-4); Lymphocytes % 14.3 %; Mean Corpuscular HGB Conc 33.7 g/dL (31.6-35.5); Mean Corpuscular Hemoglobin 31.2 pg (28.0-33.3); Mean Corpuscular Volume 92.6 fL (83.0-100.0); Mean Platelet Volume 10.4 fL (9.4-12.4); Monocytes # 0.7 K/mcL (0.0-1.3); Monocytes % 9.5 %; Neutrophils # 5.1 K/mcL (1.6-8.9); Platelet Count 123 K/mcL (140-400); Red Blood Count 4.07 M/mcL (4.19-5.50); Red Cell Distribution Width 14.7 % (11.5-14.5); Segmented Neutrophils % 75.1 %; White Blood Count 6.8 K/mcL (4.3-11.1)
[2019-07-04 09:22] LABS: Calcium 8.7 mg/dL (8.6-10.3); Potassium 3.5 mEq/L (3.5-5.1)
[2019-07-04] MEDS: Insulin LISPRO 300 UNITS/3 ML VIAL SQ SCH ×4 (09:30→20:52)
[2019-07-04] MEDS: Folic Acid 1 MG TABLET PO SCH (09:37)
[2019-07-04] MEDS: Apixaban 5 MG TABLET PO SCH ×2 (09:37→20:39)
[2019-07-04] MEDS: Cholecalciferol (D-3) 1,000 UNIT (25MCG) TABLET PO SCH (09:37)
[2019-07-04] MEDS: Furosemide 40 MG/4 ML VIAL IVP SCH (09:38)
[2019-07-04] MEDS: Azithromycin 500 MG in 0.9 % Sodium Chloride 250 ML IVPB SCH (09:38)
[2019-07-04] MEDS: levETIRAcetam 250 MG TABLET PO SCH ×2 (09:38→20:40)
[2019-07-04] MEDS: Carbidopa/Levodopa 25/250 TABLET PO SCH ×3 (09:38→20:40)
[2019-07-04] MEDS: predniSONE 20 MG TABLET PO SCH (09:38)
[2019-07-05] MEDS: Ipratropium/Albuterol Neb 3 ML IH SCH ×3 (03:16→11:12)
[2019-07-05] MEDS: Cefepime HCl 2,000 MG in 0.9 % Sodium Chloride Mini Bag 100 ML IVPB SCH (05:01)
[2019-07-05] MEDS: Insulin DETEMIR 100 UNIT/ML X5UNITS SQ SCH (05:01)
[2019-07-05] MEDS: Acetaminophen 325 MG TABLET PO PRN (05:03)
[2019-07-05 05:38] LABS: Eosinophils % 0.5 %; Hematocrit 37.4 % (37.5-50.1); Immature Granulocytes % 0.2 % (0-4); Lymphocytes # 0.8 K/mcL (0.6-4.6); Lymphocytes % 14.3 %; Mean Corpuscular HGB Conc 32.1 g/dL (31.6-35.5); Mean Corpuscular Volume 96.6 fL (83.0-100.0); Mean Platelet Volume 10.5 fL (9.4-12.4); Monocytes # 0.5 K/mcL (0.0-1.3); Monocytes % 9.4 %; Neutrophils # 4.2 K/mcL (1.6-8.9); Platelet Count 109 K/mcL (140-400); Red Blood Count 3.87 M/mcL (4.19-5.50); Red Cell Distribution Width 14.7 % (11.5-14.5); Segmented Neutrophils % 75.6 %; White Blood Count 5.5 K/mcL (4.3-11.1)
[2019-07-05 06:02] LABS: Calcium 8.6 mg/dL (8.6-10.3); Potassium 3.3 mEq/L (3.5-5.1)
[2019-07-05] MEDS ORDERED: Potassium Chloride Elixir 20 MEQ/15 ML UDC PO ONE (06:42)
[2019-07-05] MEDS ORDERED: *HR* LORazepam 2 MG/ML VIAL IVP ONE (07:21)
[2019-07-05] MEDS: Budesonide/Formoterol 160/4.5 1 PUFF INH IH SCH (07:23)
[2019-07-05] MEDS: Carbidopa/Levodopa 25/250 TABLET PO SCH (08:22)
[2019-07-05] MEDS: Cholecalciferol (D-3) 1,000 UNIT (25MCG) TABLET PO SCH (08:22)
[2019-07-05] MEDS: predniSONE 20 MG TABLET PO SCH (08:23)
[2019-07-05] MEDS: Apixaban 5 MG TABLET PO SCH (08:23)
[2019-07-05] MEDS: levETIRAcetam 250 MG TABLET PO SCH (08:23)
[2019-07-05] MEDS: Furosemide 40 MG/4 ML VIAL IVP SCH (08:23)
[2019-07-05] MEDS: Folic Acid 1 MG TABLET PO SCH (08:23)
[2019-07-05] MEDS: Azithromycin 500 MG in 0.9 % Sodium Chloride 250 ML IVPB SCH (08:25)
[2019-07-05] MEDS: Insulin LISPRO 300 UNITS/3 ML VIAL SQ SCH ×2 (08:26→11:50)
[2019-07-05 11:41] VITALS: BP 136/72
[2019-07-06] MEDS ORDERED: Azithromycin 250 MG TABLET PO SCH (09:00)
== END 2019-07-05 13:59 | DRG 70 ==
LOC: EMEROOARM 08:51 → 2ANU 08:51 → SUATTDRO 13:03 → 2ANU 14:54
PROVIDERS: ADMIT Student in an Organized Health Care Education/Training Program; ATTEND Family Medicine